=== PATIENT | female | born 1930 | race Caucasian/White ===

== ENCOUNTER 2017-03-06 19:45 | Inpatient (IN) | payer MEDICARE ==
[2017-03-06] MEDS ORDERED: SODIUM CHLORIDE 0.9% 1,000 ML IV STA (20:11)
[2017-03-06 20:37] LABS: Basophils % (A) 0 %; CH 28.7; Eosinophils # (A) 0.1 k/uL (0-0.7); Eosinophils % (A) 1 %; HCT 42.7 % (34.0-46.0); HDW 2.28; HGB 14.4 gm/dL (11.4-16.0); Luc # (Auto) 0.15; Luc % (Auto) 2; Lymphocytes # (A) 1.5 k/uL (1.0-4.8); Lymphocytes % (A) 18 %; MCH 28.7 pg (25.0-35.0); MCHC 33.7 g/dL (31.0-37.0); Mean Platelet Volume 7.7; Monocytes # (A) 0.6 k/uL (0-1.0); Monocytes % (A) 7 %; Neutrophils # (A) 6.2 k/uL (1.3-7.7); Neutrophils % (A) 72 %; RBC 5.03 m/uL (3.80-5.40); RDW 13.4 % (11.5-15.5); WBC 8.6 k/uL (3.8-10.6); WBC (Perox) 8.51
[2017-03-06 20:48] LABS: Partial Thromboplastin Time 25.1 sec (22.0-30.0); Prothrombin Time 10.6 sec (9.0-12.0)
[2017-03-06 20:51] LABS: Creatine Kinase 81 U/L (30-135)
[2017-03-06 20:54] LABS: Calcium 10.1 mg/dL (8.4-10.2); Total Bilirubin 0.5 mg/dL (0.2-1.3); Total Protein 7.2 g/dL (6.3-8.2)
--- NOTE | 2017-03-06 20:54 | CT ---
EXAMINATION TYPE: CT brain wo con DATE OF EXAM: 03/06/2017 8:43 PM COMPARISON: 08/14/2011 INDICATION: speech disturbance and confusion DLP: 978.2 mGycm, Automated exposure control for dose reduction was used. CONTRAST: None CT of the brain is performed utilizing 3 mm thick sections through the posterior fossa and 3 mm thick sections through the remaining calvarium. Study is performed within 24 hours of arrival to the hosp ital. No abnormal hyperdensity is present to suggest an acute intracranial hemorrhage. No mass lesion is evident. No acute infarcts are evident. There is periventricular white matter hypodensity, likely on the basis of chronic white matter ischemic changes. Ventricles and sulci are prominent for the patient age. Paranasal sinuses and mastoid air cells within the [id number] are clear. IMPRESSIONS: 1. Atrophy with periventricular white matter ischemic changes, slightly progressive from 2010.
[2017-03-06 21:03] LABS: Creatine Kinase MB 1.3 ng/mL (0.0-2.4); Troponin I <0.012 ng/mL (0.000-0.034)
--- NOTE | 2017-03-06 21:06 | XR ---
EXAMINATION TYPE: XR chest 2V DATE OF EXAM: 03/06/2017 8:40 PM COMPARISON: NONE INDICATION: Right side weakness TECHNIQUE: 2 view chest FINDINGS: The heart size is normal. The pulmonary vasculature is normal. The lungs are clear. Electronic device overlies left chest. Sternotomy wires are in the midline. IMPRESSION: 1. No acute pulmonary process.
[2017-03-06] MEDS ORDERED: ASPIRIN 325 MG TAB PO STA (21:24)
--- NOTE | 2017-03-06 21:45 | ED ---
Neuro HPI - General Chief Complaint: Neuro Symptoms/Deficit Stated Complaint: CVA symptoms Time Seen by Provider: 03/06/17 20:04 Source: patient Mode of arrival: wheelchair Limitations: no limitations - History of Present Illness Is the patient presenting with stroke symptoms?: Yes Last Known Well Date: 03/05/17 Initial Comments: Is an 86-year-old female with a history of hypertension presents him in [facility] for slurred speech and right arm incoordination. She states the symptoms started sometime yesterday. Her family urged her to come emergency department but she stated she did not want to come in. She decided to come in today when the symptoms did not resolve. She states that she's been having occult he was slurred speech however does not think that she's having trouble getting her words out. She admits to some numbness on the right side of her face as well as some incoordination of her right arm when she tried to eat dinner area she states that she's been able to walk okay. She does not have a history of stroke. She does have a history of CAD. She denies any headache, nausea, or vomiting. No chest pain or shortness of breath. She denies any other complaints. - Related Data Home Medications: Home Medications Medication Instructions Recorded Confirmed Aspirin EC [Ecotrin Low Dose] 81 mg PO DAILY 03/06/17 03/06/17 Atenolol [Tenormin] 25 mg PO DAILY 03/06/17 03/06/17 Cyanocobalamin [Vitamin B-12] 500 mcg PO DAILY 03/06/17 03/06/17 Docusate [Colace] 100 mg PO DAILY 03/06/17 03/06/17 Donepezil [Aricept] 10 mg PO HS 03/06/17 03/06/17 Escitalopram [Lexapro] 20 mg PO DAILY 03/06/17 03/06/17 Furosemide [Lasix] 20 mg PO DAILY 03/06/17 03/06/17 Losartan Potassium [Cozaar] 100 mg PO DAILY 03/06/17 03/06/17 Multivitamins, Thera [Multivitamin 1 tab PO DAILY 03/06/17 03/06/17 (formulary)] sitaGLIPtin [Januvia] 100 mg PO DAILY 04/26/17 04/26/17 Allergies/Adverse Reactions: Allergies Allergy/AdvReac Type Severity Reaction Status Date / Time Penicillins Allergy Rash/Hives Verified 03/06/17 20:55 Review of Systems ROS Statement: Those systems with pertinent positive or pertinent negative responses have been documented in the HPI. ROS Other: All systems not noted in ROS Statement are negative. General Exam - General Exam Comments Initial Comments: Constitutional: Awake alert Appears comfortable Head: Normocephalic atraumatic Eyes: no conjunctival injection No scleral icterus EOMI Neck: No JVD Supple Heart: Regular rate rhythm normal S1-S2 no murmurs Lungs: Clear to auscultation bilaterally No wheezing No rales Abdomen: Soft nondistended nontender Extremities: Non edematous DP pulses intact Radial pulses intact Neuro: A&Ox3 the patient does have some slurring of her speech and right-sided facial droop. She also has some ataxia in the right upper extremity however the right lower Chevys normal. She does have some weakness in the right lower extremity in the extremity drifts to the table when she tries to hold it up. Her right upper extremity and left upper extremities have normal strength. The rest of her cranial nerves are intact. Vision is intact. NIH stroke scale of 4. Psych: Appropriate mood and affect Limitations: no limitations Stroke MDM - Lab Data Result diagrams: 03/06/17 20:16 03/06/17 20:16 Lab Results 03/06/17 03/06/17 03/06/17 Range/Units 20:16 20:16 20:16 WBC 8.6 (3.8-10.6) k/uL RBC 5.03 (3.80-5.40) m/uL Hgb 14.4 (11.4-16.0) gm/dL Hct 42.7 (34.0-46.0) % MCV 85.0 (80.0-100.0) fL MCH 28.7 (25.0-35.0) pg MCHC 33.7 (31.0-37.0) g/dL RDW 13.4 (11.5-15.5) % Plt Count 230 (150-450) k/uL Neutrophils % 72 % Lymphocytes % 18 % Monocytes % 7 % Eosinophils % 1 % Basophils % 0 % Neutrophils # 6.2 (1.3-7.7) k/uL Lymphocytes # 1.5 (1.0-4.8) k/uL Monocytes # 0.6 (0-1.0) k/uL Eosinophils # 0.1 (0-0.7) k/uL Basophils # 0.0 (0-0.2) k/uL PT (9.0-12.0) sec INR (<1.1) APTT (22.0-30.0) sec Sodium 138 (137-145) mmol/L Potassium 5.0 (3.5-5.1) mmol/L Chloride 99 (98-107) mmol/L Carbon Dioxide 28 (22-30) mmol/L Anion Gap 11 mmol/L BUN 39 H (7-17) mg/dL Creatinine 1.40 H (0.52-1.04) mg/dL Est GFR (MDRD) Af Amer 43 (>60 ml/min/1.73 sqM) Est GFR (MDRD) Non-Af 36 (>60 ml/min/1.73 sqM) Glucose 143 H (74-99) mg/dL Calcium 10.1 (8.4-10.2) mg/dL Total Bilirubin 0.5 (0.2-1.3) mg/dL AST 26 (14-36) U/L ALT 24 (9-52) U/L Alkaline Phosphatase 63 (38-126) U/L Total Creatine Kinase 81 (30-135) U/L CK-MB (CK-2) 1.3 (0.0-2.4) ng/mL CK-MB (CK-2) Rel Index 1.6 Troponin I <0.012 (0.000-0.034) ng/mL Total Protein 7.2 (6.3-8.2) g/dL Albumin 4.2 (3.5-5.0) g/dL 03/06/17 Range/Units 20:16 WBC (3.8-10.6) k/uL RBC (3.80-5.40) m/uL Hgb (11.4-16.0) gm/dL Hct (34.0-46.0) % MCV (80.0-100.0) fL MCH (25.0-35.0) pg MCHC (31.0-37.0) g/dL RDW (11.5-15.5) % Plt Count (150-450) k/uL Neutrophils % % Lymphocytes % % Monocytes % % Eosinophils % % Basophils % % Neutrophils # (1.3-7.7) k/uL Lymphocytes # (1.0-4.8) k/uL Monocytes # (0-1.0) k/uL Eosinophils # (0-0.7) k/uL Basophils # (0-0.2) k/uL PT 10.6 (9.0-12.0) sec INR 1.0 (<1.1) APTT 25.1 (22.0-30.0) sec Sodium (137-145) mmol/L Potassium (3.5-5.1) mmol/L Chloride (98-107) mmol/L Carbon Dioxide (22-30) mmol/L Anion Gap mmol/L BUN (7-17) mg/dL Creatinine (0.52-1.04) mg/dL Est GFR (MDRD) Af Amer (>60 ml/min/1.73 sqM) Est GFR (MDRD) Non-Af (>60 ml/min/1.73 sqM) Glucose (74-99) mg/dL Calcium (8.4-10.2) mg/dL Total Bilirubin (0.2-1.3) mg/dL AST (14-36) U/L ALT (9-52) U/L Alkaline Phosphatase (38-126) U/L Total Creatine Kinase (30-135) U/L CK-MB (CK-2) (0.0-2.4) ng/mL CK-MB (CK-2) Rel Index Troponin I (0.000-0.034) ng/mL Total Protein (6.3-8.2) g/dL Albumin (3.5-5.0) g/dL - NIH Stroke Scale 1a. Level of Consciousness: (0) alert 1b. LOC Questions: (0) answers correctly 1c. LOC Commands: (0) performs tasks correctly 2. Best Gaze: (0) normal 3. Visual: (0) no visual loss 4. Facial Palsy: (1) minor paralysis 5a. Motor Arm Left: (0) no drift 5b. Motor Arm Right: (0) no drift 6a. Motor Leg Left: (0) no drift 6b. Motor Leg Right: (1) drift 7. Limb Ataxia: (1) present 1 limb 8. Sensory: (0) normal 9. Best Language: (0) no aphasia 10. Dysarthria: (1) mild/moderate dysarthria 11. Extinction/Inattention: (0) no abnormality NIH Score total: 4 - Thrombolytic Inclusion/Exclusion Thrombolytic Exclusion Criteria: Symptom Onset > 3 Hours - Medical Decision Making This is an 86-year-old female presents for slurred speech. On physical exam she does appear to have had an ischemic stroke. CT of the head was read as negative for acute stroke however due to the patient's physical exam I do feel that she had a stroke. The patient is not TPA Because she is outside the window as the symptoms started yesterday. NIH stroke scale 4 at baseline. The rest her labwork is unremarkable except for some achy eye. She started on fluids and given aspirin and like to keep her in the hospital for further testing. I did write for a ride Doppler of her carotids and also had 2-D echo. She is not able to get an MRI because she has a pacemaker. Dr. Bolaños accepts the admission. Past Medical History Past Medical History: Coronary Artery Disease (CAD), Diabetes Mellitus, Hyperlipidemia, Hypertension, Myocardial Infarction ([place]) History of Any Multi-Drug Resistant Organisms: None Reported Past Surgical History: Orthopedic Surgery, Pacemaker Past Psychological History: Depression Smoking Status: Never smoker Past Alcohol Use History: None Reported Past Drug Use History: None Reported Course Vital Signs 03/06/17 03/06/17 19:47 20:21 Temperature 99.3 F Pulse Rate 61 Respiratory 18 Rate Blood Pressure 203/82 161/65 O2 Sat by Pulse 94 L Oximetry Disposition Clinical Impression: Cerebrovascular accident Disposition: ADMITTED IP TO THIS HOSP Condition: Stable
[2017-03-07 00:49] VITALS: BMI 33.3
[2017-03-07 07:03] LABS: Glucose,Whole Blood 104 mg/dL (75-99)
[2017-03-07] MEDS: ATENOLOL 25 MG TAB PO SCH (08:33)
[2017-03-07] MEDS: CYANOCOBALAMIN 500 MCG TAB PO SCH (08:33)
[2017-03-07] MEDS: ESCITALOPRAM 20 MG TAB PO SCH (08:33)
[2017-03-07] MEDS: DOCUSATE 100 MG CAP PO SCH (08:33)
[2017-03-07] MEDS: LINAGLIPTIN 5 MG TABLET PO SCH (08:34)
[2017-03-07] MEDS: LOSARTAN 50 MG TAB PO SCH (08:34)
[2017-03-07] MEDS: FUROSEMIDE 20 MG TAB PO SCH (08:34)
[2017-03-07] MEDS: MULTIVITAMINS, THERA 1 EACH TAB PO SCH (08:34)
--- NOTE | 2017-03-07 10:28 | ECHOF ---
Referral Reason:Thrombus MEASUREMENTS -------- HEIGHT: 157.5 cm WEIGHT: 82.6 kg BP: 162/74 RVIDd: 3.0 cm (< 3.3) IVSd: 1.4 cm (0.6 - 1.1) LVIDd: 5.3 cm (3.9 - 5.3) LVPWd: 1.2 cm (0.6 - 1.1) IVSs: 1.8 cm LVIDs: 3.8 cm LVPWs: 1.6 cm LAESV Index (A-L): 36.89 ml/m Ao Diam: 3.0 cm (2.0 - 3.7) AV Cusp: 1.3 cm (1.5 - 2.6) LA Diam: 3.0 cm (2.7 - 3.8) MV EXCURSION: 15.618 mm (> 18.000) MV EF SLOPE: 45 mm/s (70 - 150) MV E Jayesh: 0.64 m/s MV DecT: 202 ms MV A Jayesh: 0.97 m/s MV E/A Ratio: 0.67 AV maxP.46 mmHg AV meanP.55 mmHg RAP: 5.00 mmHg RVSP: 36.12 mmHg FINDINGS -------- Paced rhythm. This was a technically adequate study. There is moderate concentric left ventricular hypertrophy. There is moderate global hypokinesis of LV . Overall left ventricular systolic function is moderate-severely impaired with, an EF between 30 - 35 %. The right ventricle is normal in size and function. LA is moderately dilated 34-39 ml/m2 The right atrium is mildly enlarged. There is mild to moderate aortic valve sclerosis. Can't exclude Bicuspid valve vs fused cusp. Moderate mitral annular calcification present. Nksy-bp-[id number] mitral regurgitation is present. Mild tricuspid regurgitation present. There is mild pulmonary hypertension. The right ventricular systolic pressure, as measured by Doppler, is 36.12mmHg. The pulmonic valve was not well visualized. The aortic root size is normal. There is no pericardial effusion. CONCLUSIONS -------- 1. Paced rhythm. 2. There is mild pulmonary hypertension. 3. The right ventricular systolic pressure, as measured by Doppler, is 36.12mmHg. 4. The pulmonic valve was not well visualized. 5. The aortic root size is normal. 6. There is no pericardial effusion. 7. There is moderate concentric left ventricular hypertrophy. 8. LA is moderately dilated 34-39 ml/m2 9. The right atrium is mildly enlarged. 10. There is mild to moderate aortic valve sclerosis. 11. Can't exclude Bicuspid valve vs fused cusp. 12. Moderate mitral annular calcification present. 13. Acpu-xg-[id number] mitral regurgitation is present. 14. Mild tricuspid regurgitation present. INFORMATION DIRECTOR: Melissa Hall RDCS
[2017-03-07 11:08] LABS: Glucose,Whole Blood 170 mg/dL (75-99)
--- NOTE | 2017-03-07 11:48 | US ---
EXAMINATION TYPE: US carotid duplex BILAT DATE OF EXAM: 03/07/2017 10:12 AM COMPARISON: NONE CLINICAL HISTORY: Stenosis. EXAM MEASUREMENTS: RIGHT: Peak Systolic Velocity (PSV) cm/sec ----- Right CCA: 53.9 ----- Right ICA: 86.7 ----- Right ECA: 70.2 ICA/CCA ratio: 1.6 RIGHT: End Diastole cm/sec ----- Right CCA: 6.1 ----- Right ICA: 19.7 ----- Right ECA: 0 LEFT: Peak Systolic Velocity (PSV) cm/sec ----- Left CCA: 66.8 ----- Left ICA: 8..9 ----- Left ECA: 85.8 ICA/CCA ratio: 1.9 LEFT: End Diastole cm/sec ----- Left CCA: 11.9 ----- Left ICA: 20.4 ----- Left ECA: 0 VERTEBRALS (direction of flow): Right Vertebral: Antegrade Left Vertebral: Antegrade mild atherosclerotic change at right bulb; Left bulb also shows change extending into proximal ICA. Arrythmia no hemodynamic stenosis IMPRESSION: 1. Atherosclerotic plaque bilaterally with no significant hemodynamic stenosis.
[2017-03-07 16:08] LABS: Glucose,Whole Blood 129 mg/dL (75-99)
--- NOTE | 2017-03-07 21:01 | P.CNNES ---
History of Present Illness Consult date: 03/07/17 History of Present Illness: Patient is an 86-year-old white female who reports that she woke up this morning with slurred speech. She also noticed right facial droop and right- sided weakness. She experienced some right-sided numbness which improved over 24 hours. She continues to experience right-sided weakness in the arm and leg. She denies any double vision or headache. She denied any history of such events in the past. He has a history of of [place] and high blood pressure. Her other risk factor includes diabetes she has been taking baby aspirin. He had a CT of the brain in the emergency room which was unremarkable. He had an ultrasound done which did not reveal a significant stenosis. Review of Systems Constitutional: Denies chills, Denies fever Eyes: denies blurred vision, denies pain Ears, nose, mouth and throat: Denies headache, Denies sore throat Cardiovascular: Denies chest pain, Denies shortness of breath Respiratory: Denies cough Gastrointestinal: Denies abdominal pain, Denies diarrhea, Denies nausea, Denies vomiting Genitourinary: Denies dysuria, Denies hematuria Musculoskeletal: Denies myalgias Integumentary: Denies pruritus, Denies rash Neurological: Denies numbness, Denies weakness Psychiatric: Denies anxiety, Denies depression Endocrine: Denies fatigue, Denies weight change Past Medical History Past Medical History: Coronary Artery Disease (CAD), Diabetes Mellitus, Hyperlipidemia, Hypertension, Myocardial Infarction ([place]) Additional Past Medical History / Comment(s): patient states she had a heart attack 30-40 years ago. Last Myocardial Infarction Date:: 1984 History of Any Multi-Drug Resistant Organisms: None Reported Past Surgical History: Orthopedic Surgery, Pacemaker Past Anesthesia/Blood Transfusion Reactions: No Reported Reaction Type of Cardiac Device: Permanent Pacemaker Device Placement Date:: 2001 Past Psychological History: Depression Smoking Status: Never smoker Past Alcohol Use History: None Reported Past Drug Use History: None Reported - Past Family History Father Family Medical History: Coronary Artery Disease (CAD) Medications and Allergies Home Medications Medication Instructions Recorded Confirmed Type Aspirin EC [Ecotrin Low Dose] 81 mg PO DAILY 03/06/17 03/06/17 History Atenolol [Tenormin] 25 mg PO DAILY 03/06/17 03/06/17 History Cyanocobalamin [Vitamin B-12] 500 mcg PO DAILY 03/06/17 03/06/17 History Docusate [Colace] 100 mg PO DAILY 03/06/17 03/06/17 History Donepezil [Aricept] 10 mg PO HS 03/06/17 03/06/17 History Escitalopram [Lexapro] 20 mg PO DAILY 03/06/17 03/06/17 History Furosemide [Lasix] 20 mg PO DAILY 03/06/17 03/06/17 History Losartan Potassium [Cozaar] 100 mg PO DAILY 03/06/17 03/06/17 History Multivitamins, Thera [Multivitamin 1 tab PO DAILY 03/06/17 03/06/17 History (formulary)] sitaGLIPtin [Januvia] 100 mg PO DAILY 03/06/17 03/06/17 History Allergies Allergy/AdvReac Type Severity Reaction Status Date / Time Penicillins Allergy Rash/Hives Verified 03/06/17 20:55 Physical Examination - Vital Signs Vital Signs: Vital Signs Temp Pulse Pulse Resp BP BP Pulse Ox 03/07/17 16:00 63 16 190/110 97 03/07/17 12:00 76 16 157/74 98 03/07/17 08:00 97.2 F L 63 16 180/101 94 L 03/07/17 04:00 97.1 F L 60 18 162/74 96 03/06/17 23:55 96.9 F L 60 18 139/92 95 03/06/17 23:32 69 18 183/82 96 03/06/17 22:06 64 18 185/85 98 Intake and Output 03/07/17 03/07/17 03/07/17 06:59 14:59 22:59 Intake Total 480 480 Output Total 200 300 Balance 280 180 Intake: Oral 480 480 Output: Urine 200 300 Other: Voiding Method Toilet Toilet Toilet # Voids 1 1 # Bowel Movements 0 0 Weight 82.7 kg - Constitutional General appearance: average body habitus - EENT EENT: PERRL, vision intact - Respiratory Respiratory: lungs clear - Cardiovascular Cardiovascular: regular rate - Integumentary Integumentary: normal - Neurologic Mental status she was awake alert and oriented. There was mild dysarthria. Cranial nerve examination: PERRL, EOMI, VFF, other (She had a right upper motor neuron facial weakness) Speech examination: motor aphasia Detailed motor examination: other (She had right-sided hemiparesis 4/5) - Psychiatric Psychiatric: mood/affect appropriate, cooperative Results - Laboratory Findings CBC and BMP: 03/06/17 20:16 03/06/17 20:16 Abnormal Lab Findings: Abnormal Labs 03/07/17 03/07/17 03/07/17 07:02 11:06 16:06 POC Glucose (mg/dL) 104 H 170 H 129 H Assessment and Plan (1) Cerebrovascular accident Status: Acute Code(s): I63.9 - CEREBRAL INFARCTION, UNSPECIFIED Plan: The patient has most likely had a left subcortical infarct. Recommend further evaluation with echocardiogram. Recommend Plavix 75 mg a day for stroke prophylaxis. Recommend PT OT and speech therapy patient's risk factors include diabetes heart disease and hypertension
[2017-03-07] MEDS: ATORVASTATIN 80 MG TAB PO SCH (21:06)
[2017-03-07] MEDS: DONEPEZIL 10 MG TAB PO SCH (21:06)
[2017-03-07] MEDS: SODIUM CHLORIDE 0.9% 1,000 ML IV SCH (21:21)
[2017-03-07 22:03] LABS: Glucose,Whole Blood 121 mg/dL (75-99)
[2017-03-08 06:35] LABS: Calcium 9.1 mg/dL (8.4-10.2); Potassium 4.4 mmol/L (3.5-5.1)
[2017-03-08 06:35] LABS: Glucose,Whole Blood 110 mg/dL (75-99)
--- NOTE | 2017-03-08 08:08 | HP ---
DATE OF ADMISSION: 03/06/2017 PRESENTING COMPLAINT: Right-sided weakness. HISTORY OF PRESENTING COMPLAINT: This is a pleasant 86-year-old patient who the day before presented noted weakness on the right side, slurring of speech, brought in. There was no change in her vision. No difficulty in swallowing. There has been no change. Getting worse or improvement since presentation. Patient is not felt to be candidate in the ER with TPA. Patient's chronic stable medical conditions include coronary artery disease, diabetes, hyperlipidemia, hypertension, [place] 30 years ago with a permanent pacemaker. REVIEW OF SYSTEMS: CONSTITUTIONAL: None. HEENT: None. RESPIRATORY: None. CARDIOVASCULAR: None. GASTROINTESTINAL: None. GENITOURINARY: None. MUSCULOSKELETAL: None. DERMATOLOGICAL: None. HEMATOLOGICAL: None. LYMPHATIC: None. PSYCHIATRY: None. NEUROLOGICAL: As above. Past medical history of coronary artery disease, diabetes, hyperlipidemia, hypertension, [place] 30 years ago, permanent pacemaker. PAST SURGICAL HISTORY: Orthopedic surgery, pacemaker. SOCIAL HISTORY: No smoking. No alcohol. Daughter lives next door. Family history of coronary artery disease. HOME MEDICATIONS: 1. Januvia 100 mg p.o. daily. 2. Multivitamin 1 tablet p.o. daily. 3. Cozaar 100 mg p.o. daily. 4. Lasix 20 mg p.o. daily. 5. Lexapro 20 mg p.o. daily. 6. Aricept 10 mg q.h.s. 7. Colace 100 mg p.o. daily. 8. Vitamin B12 500 mcg p.o. daily. 9. Tenormin 25 mg p.o. daily. 10. Aspirin 81 mg p.o. daily. ALLERGIES: PENICILLIN. PHYSICAL EXAMINATION: Vital signs on presentation: Temperature 99.3, pulse 86, respiratory rate 18, blood pressure up to 203/82, repeat down to 185/85, pulse ox 94% on room air. GENERAL APPEARANCE: Well built, BMI of 33.3. Lying in bed, not in distress. EYES: Pupils equal. Conjunctivae normal. HEENT: External appearance of nose and ears normal. Oral cavity normal. NECK: JVD not raised. Mass not palpable. RESPIRATORY: Effort normal. Lungs are clear. CARDIOVASCULAR: First and second sounds normal. No edema. ABDOMEN: Soft, nontender. Liver and spleen not palpable. LYMPHATIC: No lymph node palpable in neck or axillae. PSYCHIATRY: Alert and oriented x3. Mood and affect normal. NEUROLOGICAL: Patient's mouth is pulled to the left side. Speech is slurred. Power in the right arm and leg is 4/5. Sensation grossly preserved. Reflexes are equal. INVESTIGATIONS: White count 8.6, hemoglobin 14.4. Potassium 5.0. BUN 39, creatinine 1.40. Accu-Cheks are noted. CT scan of the brain shows atrophy with periventricular white matter ischemic changes. The patient's 2-D echocardiogram showed moderate concentric left ventricular hypertrophy, some mitral annular calcification. Carotid Doppler did not show any critical hemodynamic stenosis. ASSESSMENT: 1. This is a patient who presents with right arm right leg weakness, dysarthria. This appears to be in the area of left middle cerebral artery area likely ischemic in nature in a right-handed patient. This is an acute stroke. 2. Coronary artery disease with myocardial infarction over 30 years ago. 3. Diabetes mellitus, type 2, on oral hypoglycemic. 4. Hypertensive urgency, present on admission. 5. Permanent pacemaker. 6. Obesity; body mass index of 33.3. 7. Abnormal renal function. Could be possibly chronic. Need to rule out an acute component. PLAN: Patient was started on aspirin, Lipitor. Will check a lipid profile. PT, OT is consulted including Neurology consultation. Care was discussed with the patient. Patient is able to swallow her food. Will do a renal ultrasound and also do UA to rule out any chronic kidney disease element. Care was discussed with the patient in detail.
[2017-03-08] MEDS ORDERED: ASPIRIN 325 MG TAB PO SCH (09:00)
[2017-03-08] MEDS: CLOPIDOGREL 75 MG TAB PO SCH (09:22)
[2017-03-08] MEDS: ASPIRIN 81 MG CHEW PO SCH (09:22)
[2017-03-08] MEDS: MULTIVITAMINS, THERA 1 EACH TAB PO SCH (09:22)
[2017-03-08] MEDS: ATENOLOL 25 MG TAB PO SCH (09:22)
[2017-03-08] MEDS: ESCITALOPRAM 20 MG TAB PO SCH (09:22)
[2017-03-08] MEDS: LOSARTAN 50 MG TAB PO SCH (09:22)
[2017-03-08] MEDS: DOCUSATE 100 MG CAP PO SCH (09:22)
[2017-03-08] MEDS: FUROSEMIDE 20 MG TAB PO SCH (09:23)
[2017-03-08] MEDS: CYANOCOBALAMIN 500 MCG TAB PO SCH (09:23)
[2017-03-08] MEDS: LINAGLIPTIN 5 MG TABLET PO SCH (09:23)
--- NOTE | 2017-03-08 10:02 | US ---
EXAMINATION TYPE: US kidneys/renal and bladder DATE OF EXAM: 03/08/2017 7:58 AM COMPARISON: NONE CLINICAL HISTORY: elevated creatinie. Elevated creatinine, obese patient EXAM MEASUREMENTS: Right Kidney: 10.5 x 4.2 x 4.6 cm Left Kidney: 10.4 x 5.0 x 5.1 cm Right Kidney: 1.6cm hypoechoic area inferior pole, limited by rib shadowing Left Kidney: no hydronephrosis or masses seen at this time, limited by rib shadowing Bladder: not fully distended, limited visualization IMPRESSION: 1. No hydronephrosis or nephrolithiasis. 2. 1.6 cm hypoechoic nodule inferior pole right kidney does not meet the criteria of simple cyst but this likely is technical. Correlate clinically and with additional imaging is warranted.
[2017-03-08 11:49] LABS: Hemoglobin A1C 6.6 % (4.2-6.1)
[2017-03-08 12:11] LABS: Glucose,Whole Blood 134 mg/dL (75-99)
[2017-03-08] MEDS: SODIUM CHLORIDE 0.9% 1,000 ML IV SCH ×2 (16:50→21:15)
[2017-03-08 16:59] LABS: Glucose,Whole Blood 107 mg/dL (75-99)
--- NOTE | 2017-03-08 19:35 | PN ---
DATE OF SERVICE: 03/08/2017 PRESENTING COMPLAINT: Right-sided weakness. INTERVAL HISTORY: This is a pleasant 86-year-old patient who presented with right-sided weakness, slurred speech. Today the patient continues to have right-sided weakness, is sitting up on the side of the bed getting ready to walk with assistance into the bathroom to get cleaned up. Patient in good spirits. No acute distress noted. Review of systems done for constitutional, cardiovascular, GI, pulmonary, with relevant findings as above. CURRENT MEDICATIONS: 1. Januvia. 2. Multivitamin. 3. Cozaar. 4. Lasix. 5. Lexapro. 6. Aricept. 7. Colace. 8. Vitamin B12. 9. Tenormin. 10. Aspirin. PHYSICAL EXAMINATION: VITAL SIGNS: Temperature 97, pulse 60, respiratory rate 16, blood pressure 104/75, oxygen saturation 97% on room air. GENERAL APPEARANCE: Patient sitting on side of the bed, not in any distress. Getting ready to take a shower. Smiling. EYES: Pupils equal. Conjunctivae normal. NECK: JVD not raised. Mass not palpable. RESPIRATORY: Effort normal. Lungs are clear. CARDIOVASCULAR: First and second sounds are normal. No edema. ABDOMEN: Soft, nontender. Liver and spleen not palpable. PSYCHIATRY: Alert and oriented x3. Mood and affect are normal. NEUROLOGICAL: Patient's mouth is pulled down, pulled to the left side. Speech is slurred. Power in the right arm and leg is 4/5. Sensation grossly preserved. Reflexes are equal. INVESTIGATIONS: BUN 40, creatinine 1.3, down from 1.4 on 03/06. Blood glucose monitoring continues. Triglycerides 248, cholesterol 200, LDL 124, HDL 26. Renal ultrasound shows no hydronephrosis or nephrolithiasis; 1.6 cm hypoechoic nodule, inferior pole, right kidney; does not meet criteria of simple cyst, but this is likely technical. Correlate clinically with additional imaging as warranted. ASSESSMENT: 1. Patient who presents with right-sided weakness, right arm weakness, right leg weakness, dysarthria. Appears to be located in left middle cerebral artery area, likely ischemic in nature, in a right-handed patient. This is an acute stroke. 2. Coronary artery disease with myocardial infarction over 30 years ago. 3. Diabetes mellitus, type 2, on oral hypoglycemics. 4. Hypertensive urgency, present on admission. 5. Permanent pacemaker. 6. Obesity; body mass index of 33.3. 7. Abnormal renal function; could be possibly chronic. Need to rule out an acute component. PLAN: Continue aspirin and Lipitor. Lipid panel as above. PT/OT consulted. Neurology continues to follow in consultation. Discharge planning to include patient being sent to rehabilitation for strengthening, gait training, post-stroke rehabilitation. Care was discussed in detail with the patient. Patient was seen and examined by me, nurse practitioner, and attending, Dr. Bolaños. The relevant points of the history, physical, diagnoses and plan were discussed and are as dictated above.
[2017-03-08 20:44] LABS: Glucose,Whole Blood 138 mg/dL (75-99)
[2017-03-08] MEDS: ATORVASTATIN 80 MG TAB PO SCH (21:10)
[2017-03-08] MEDS: DONEPEZIL 10 MG TAB PO SCH (21:10)
[2017-03-09 06:21] LABS: Glucose,Whole Blood 102 mg/dL (75-99)
[2017-03-09 06:55] LABS: CH 28.3; CHCM 33.6; HCT 37.6 % (34.0-46.0); HDW 2.32; HGB 12.8 gm/dL (11.4-16.0); MCH 28.6 pg (25.0-35.0); MCV 84.4 fL (80.0-100.0); Mean Platelet Volume 7.8; RBC 4.45 m/uL (3.80-5.40); RDW 13.3 % (11.5-15.5); WBC 9.2 k/uL (3.8-10.6)
[2017-03-09 07:01] LABS: Calcium 9.2 mg/dL (8.4-10.2); Potassium 4.3 mmol/L (3.5-5.1)
[2017-03-09] MEDS: ATENOLOL 25 MG TAB PO SCH (08:45)
[2017-03-09] MEDS: LOSARTAN 50 MG TAB PO SCH (08:45)
[2017-03-09] MEDS: CYANOCOBALAMIN 500 MCG TAB PO SCH (08:45)
[2017-03-09] MEDS: MULTIVITAMINS, THERA 1 EACH TAB PO SCH (08:45)
[2017-03-09] MEDS: FUROSEMIDE 20 MG TAB PO SCH (08:45)
[2017-03-09] MEDS: ASPIRIN 81 MG CHEW PO SCH (08:45)
[2017-03-09] MEDS: ESCITALOPRAM 20 MG TAB PO SCH (08:45)
[2017-03-09] MEDS: CLOPIDOGREL 75 MG TAB PO SCH (08:46)
[2017-03-09] MEDS: LINAGLIPTIN 5 MG TABLET PO SCH (08:46)
[2017-03-09] MEDS: DOCUSATE 100 MG CAP PO SCH (08:46)
[2017-03-09 11:50] LABS: Glucose,Whole Blood 154 mg/dL (75-99)
[2017-03-09] MEDS: SODIUM CHLORIDE 0.9% 1,000 ML IV SCH (15:54)
[2017-03-09] MEDS ORDERED: RX INFO: IV CONTRAST WAS GIVEN 1 EACH MISC MISCELLANE PRN (16:34)
[2017-03-09 17:20] LABS: Glucose,Whole Blood 109 mg/dL (75-99)
--- NOTE | 2017-03-09 18:53 | PN ---
SUBJECTIVE DATA/INTERVAL HISTORY: This is an 86-year-old female who was admitted to the hospital with slurred speech, right-sided weakness with a diagnosis of acute CVA of the left MCA territory. Patient was admitted to the hospital. Her risk factors were delineated. Echocardiogram was done showing an EF of 30% to 35%. Patient currently is dual paced. Patient does have a moderately dilated left atrium. Today patient states that her weakness is about the same. Denies having any headaches, change in vision, nausea, vomiting, diarrhea or urinary urgency or frequency PHYSICAL EXAMINATION: VITAL SIGNS: Temperature 96.8. Heart rate is 60. Blood pressure is 205/91, which is isolated. GENERAL APPEARANCE: Alert and oriented x3. Does appear to have some dysarthria. Neck is supple. No JVD. Extraocular movements intact. Pupils are equal, round and react to light and accommodation. LUNGS: Good air movement. Clear to auscultation. HEART: Appears regular. No significant abnormalities with murmurs noted. ABDOMEN: Soft, nontender. No organomegaly. NEUROLOGIC EXAM: Strength is 3 out of 5 on the right upper extremity, 3 out of 5 in the right lower extremity. Drift is noted on the right upper extremity within 5 seconds. Left upper and lower extremity strength is 5 out of 5. Deep tendon reflexes positive Babinski on the right side. LABORATORY DATA: Hemoglobin 12.8, hematocrit 37.6, platelets 195. Sodium 139, potassium 4.3, chloride 102, bicarb 30. BUN 36, creatinine of 1.09. ASSESSMENT AND PLAN: 1. Acute left middle cerebral artery territory stroke in a right-dominant person with right-sided weakness. 2. Acute kidney injury, likely secondary to prerenal azotemia, which is improved. 3. Hypertension, which is slightly elevated; however, this is sequelae of stroke. Continue ongoing care. Will discontinue IV fluids today. 4. History of coronary artery disease. 5. Compensated systolic heart failure. 6. Dyslipidemia. PLAN: Patient was started on aspirin and Plavix. There is no indication ( ) large intracranial clot; hence will obtain a CT angiogram of the head. If there is a large clot in the left MCA territory region which would explain the current stroke, will continue Plavix; if not, I would discontinue the Plavix at that time. Do not treat the hypertension unless the patient's blood pressure systolic is greater than 220. Monitor renal function in the a.m. Continue neuro checks. Patient will likely need placement to ( ). Will add DVT prophylaxis to the current management as well.
[2017-03-09] MEDS: DONEPEZIL 10 MG TAB PO SCH (20:22)
[2017-03-09] MEDS: ATORVASTATIN 80 MG TAB PO SCH (20:22)
[2017-03-09] MEDS: ENOXAPARIN 40 MG/0.4 ML SYRINGE SQ SCH (20:22)
[2017-03-09 21:17] LABS: Glucose,Whole Blood 155 mg/dL (75-99)
--- NOTE | 2017-03-09 21:27 | CT ---
EXAMINATION TYPE: CT angio head DATE OF EXAM: 03/09/2017 9:09 PM COMPARISON: CT brain from 3 days ago HISTORY: Right sided weakness and slurred speech. CT DLP: 1397.20 mGycm Automated exposure control for dose reduction was used. TECHNIQUE: Performed without and with IV Contrast, patient injected with 80 mL of Visipaque 320. 3D reconstructed images are created on an independent workstation and reviewed. Miffed images are als o reviewed. FINDINGS: There is codominant vertebral basilar system. There is no significant focal stenosis in the posterior circulation. There are hypoplastic posterior communicating arteries seen bilaterally. No aneurysmal change is seen. Images of the anterior circulation show moderate to severe calcified plaque distal internal carotid a rteries bilaterally. No significant stenosis is clearly seen. No aneurysmal change is identified. Pat ent anterior communicating artery is not definitively seen. There is diffuse cerebral atrophy and chronic small vessel ischemic change redemonstrated. Hyperostos is frontalis is again seen. IMPRESSION: NO ANEURYSMAL CHANGE OR SIGNIFICANT FOCAL STENOSIS AT LEVEL OF THE [place]UMB[place] OF PALM.
[2017-03-10 06:32] LABS: Glucose,Whole Blood 95 mg/dL (75-99)
[2017-03-10 07:23] LABS: Calcium 9.1 mg/dL (8.4-10.2); Potassium 4.7 mmol/L (3.5-5.1); Total Bilirubin 0.8 mg/dL (0.2-1.3); Total Protein 6.3 g/dL (6.3-8.2)
[2017-03-10 07:48] LABS: Basophils # (A) 0.1 k/uL (0-0.2); Basophils % (A) 1 %; CH 28.6; CHCM 33.8; Eosinophils # (A) 0.2 k/uL (0-0.7); Eosinophils % (A) 2 %; HCT 38.7 % (34.0-46.0); HDW 2.29; HGB 12.8 gm/dL (11.4-16.0); Luc # (Auto) 0.29; Luc % (Auto) 4; Lymphocytes # (A) 1.9 k/uL (1.0-4.8); Lymphocytes % (A) 23 %; MCH 28.1 pg (25.0-35.0); MCV 85.1 fL (80.0-100.0); Mean Platelet Volume 7.6; Monocytes # (A) 0.7 k/uL (0-1.0); Monocytes % (A) 9 %; Neutrophils % (A) 62 %; RBC 4.55 m/uL (3.80-5.40); RDW 13.4 % (11.5-15.5); WBC 8.1 k/uL (3.8-10.6); WBC (Perox) 8.58
[2017-03-10] MEDS: ASPIRIN 81 MG CHEW PO SCH (09:12)
[2017-03-10] MEDS: CLOPIDOGREL 75 MG TAB PO SCH (09:12)
[2017-03-10] MEDS: LINAGLIPTIN 5 MG TABLET PO SCH (09:12)
[2017-03-10] MEDS: ATENOLOL 25 MG TAB PO SCH (09:12)
[2017-03-10] MEDS: ENOXAPARIN 40 MG/0.4 ML SYRINGE SQ SCH (09:13)
[2017-03-10] MEDS: CYANOCOBALAMIN 500 MCG TAB PO SCH (09:13)
[2017-03-10] MEDS: DOCUSATE 100 MG CAP PO SCH (09:13)
[2017-03-10] MEDS: FUROSEMIDE 20 MG TAB PO SCH (09:14)
[2017-03-10] MEDS: LOSARTAN 50 MG TAB PO SCH (09:14)
[2017-03-10] MEDS: ESCITALOPRAM 20 MG TAB PO SCH (09:14)
[2017-03-10] MEDS: MULTIVITAMINS, THERA 1 EACH TAB PO SCH (09:15)
[2017-03-10 11:50] VITALS: RESP 16
[2017-03-10 12:22] LABS: Glucose,Whole Blood 151 mg/dL (75-99)
[2017-03-10] MEDS: DONEPEZIL 10 MG TAB PO SCH (21:07)
[2017-03-10] MEDS: ATORVASTATIN 80 MG TAB PO SCH (21:07)
[2017-03-11] MEDS: LOSARTAN 50 MG TAB PO SCH (08:30)
[2017-03-11] MEDS: ENOXAPARIN 40 MG/0.4 ML SYRINGE SQ SCH (08:30)
[2017-03-11] MEDS: DOCUSATE 100 MG CAP PO SCH (08:31)
[2017-03-11] MEDS: ATENOLOL 25 MG TAB PO SCH (08:32)
[2017-03-11] MEDS: ESCITALOPRAM 20 MG TAB PO SCH (08:32)
[2017-03-11] MEDS: MULTIVITAMINS, THERA 1 EACH TAB PO SCH (08:32)
[2017-03-11] MEDS: LINAGLIPTIN 5 MG TABLET PO SCH (08:32)
[2017-03-11] MEDS: FUROSEMIDE 20 MG TAB PO SCH (08:32)
[2017-03-11] MEDS: ASPIRIN 81 MG CHEW PO SCH (08:32)
[2017-03-11] MEDS: CYANOCOBALAMIN 500 MCG TAB PO SCH (10:46)
[2017-03-11 15:33] VITALS: BP 143/85; PULSE 60; TEMP 96.9
--- NOTE | 2017-03-11 16:10 | P.DS ---
Providers Date of admission: 03/06/17 21:38 Attending physician: Tee Bolaños Consults: 03/07/17 04:35 Consult Physician Routine Consulting Provider: Lillian Rae Consult Reason/Comments: slurred speech, right side weakness Do you want consulting provider notified?: Yes, Notify in am Primary care physician: [facility] Course: 0 female comes in the hospital with slurred speech right-sided weakness. Patient was diagnosed with a acute CVA of the left MCA territory. Patient underwent risk factor assessment. Patient was initially started on aspirin and Plavix however a CT angiogram of the head did not reveal any left MCA region thrombus. Hence the Plavix was discontinued. Patient's residual symptoms appear to be there is some dysarthria fine motor skills on the right upper extremity are limited. Echocardiogram showed EF of 30-35% carotid studies did not reveal any significant amount is EKG was within normal limits no signs of atrial fibrillation was noted on telemetry monitoring On the day of discharge patient was answering questions appropriately family was at bedside states the abnormality that was noted was patient was not able to perform fine motor skills like eating her food with a fork Physical exam Gen. appearance oriented 3 Neck is supple no JVD no carotid bruit Lungs good air movement clear to auscultation heart S1-S2 heard regular rate and rhythm no murmurs appreciated Is soft nontender no organomegaly Neurologic exam dysarthria appreciated rest of the cranial nerves from 2 till 12 appear to be appropriate. Muscle strength is 4 out of 5 in the right upper extremity right lowers 5 out of 5 left upper and left lower 5 out of 5 in strength Fine motor skills are diminished on the right upper x-ray Discharge diagnosis acute CVA of the left MCA territory causing right-sided weakness #2 compensated systolic heart failure #3 acute kidney injury secondary to prerenal improved #4 dyslipidemia #5 history of CAD *Should ECF in a stable condition no medication changes. 4 atorvastatin 80 mg. Patient Condition at Discharge: Stable Plan - Discharge Summary New Discharge Prescriptions: Atorvastatin [Lipitor] 80 mg PO HS #30 tab Discharge Medication List Aspirin EC [Ecotrin Low Dose] 81 mg PO DAILY 03/06/17 [History] Atenolol [Tenormin] 25 mg PO DAILY 03/06/17 [History] Cyanocobalamin [Vitamin B-12] 500 mcg PO DAILY 03/06/17 [History] Docusate [Colace] 100 mg PO DAILY 03/06/17 [History] Donepezil [Aricept] 10 mg PO HS 03/06/17 [History] Escitalopram [Lexapro] 20 mg PO DAILY 03/06/17 [History] Furosemide [Lasix] 20 mg PO DAILY 03/06/17 [History] Losartan Potassium [Cozaar] 100 mg PO DAILY 03/06/17 [History] Multivitamins, Thera [Multivitamin (formulary)] 1 tab PO DAILY 03/06/17 [History ] sitaGLIPtin [Januvia] 100 mg PO DAILY 03/06/17 [History] Atorvastatin [Lipitor] 80 mg PO HS #30 tab 03/11/17 [Rx] Follow up Appointment(s)/Referral(s): Cheko Junior MD [Primary Care Provider] - 1-2 days Iva Rae MD [STAFF PHYSICIAN] - 1 Week Patient Instructions/Handouts: Type 2 Diabetes in Adults (DC) Discharge Disposition: TRANSFER TO SNF/ECF
[2017-03-12] MEDS ORDERED: ENOXAPARIN 30 MG/0.3 ML SYRINGE SQ SCH (09:00)
--- NOTE | 2017-04-05 07:23 | PN ---
DATE OF SERVICE: 03/08/2017 ATTENDING NOTE: This patient was seen and examined by me on 03/08/2017. I reviewed the progress note of my nurse practitioner, Ms. Roman. Discussed and agreed the same. Admitted with stroke with right-sided weakness and slurred speech. On examination, blood pressure 105/75, pulse ox 97% on room air. Speech is slightly slurred. Power in the right arm and leg is 4/5. Sensation preserved. ASSESSMENT: 1. Acute stroke location in the middle cerebral artery, likely ischemic in nature. 2. Coronary artery disease with prior history of myocardial infarction. PLAN: Continue patient on aspirin and Lipitor. Care was discussed with the patient.
== END 2017-03-11 17:07 | DRG 65 ==
LOC: EC 19:45 → 6SEL 21:38 → 4MS4W 03-10 13:32
PROVIDERS: ADMIT Hospitalist; ATTEND Hospitalist
DX: I63.512 Cerebral infarction due to unspecified occlusion or stenosis of left middle cerebral artery (principal); I69.351 Hemiplegia and hemiparesis following cerebral infarction affecting right dominant side; N17.9 Acute kidney failure, unspecified; I11.0 Hypertensive heart disease with heart failure; I50.22 Chronic systolic (congestive) heart failure; E11.9 Type 2 diabetes mellitus without complications; E66.9 Obesity, unspecified; E78.5 Hyperlipidemia, unspecified; I16.0 Hypertensive urgency; I25.10 Atherosclerotic heart disease of native coronary artery without angina pectoris; I25.2 Old myocardial infarction; Z68.33 Body mass index [BMI] 33.0-33.9, adult; Z79.82 Long term (current) use of aspirin; Z79.84 Long term (current) use of oral hypoglycemic drugs; Z79.899 Other long term (current) drug therapy; Z82.49 Family history of ischemic heart disease and other diseases of the circulatory system; Z88.0 Allergy status to penicillin
CPT/HCPCS: 36415; 70450; 70496; 71020; 76770; 80048; 80053; 80061; 82550; 82553; 83036; 84443; 84484; 85025; 85027; 85610; 85730; 93005; 93306; 93880; 96360; 99285

== ENCOUNTER → 2018-06-17 | Outpatient (CLI) | payer MEDICARE ==
[2018-06-17 13:01] LABS: HCT 37.6 % (34.0-46.0); HGB 12.6 gm/dL (11.4-16.0); MCH 28.7 pg (25.0-35.0); MCHC 33.4 g/dL (31.0-37.0); MCV 85.8 fL (80.0-100.0); Mean Platelet Volume 7.8; Platelet Count 177 k/uL (150-450); RBC 4.38 m/uL (3.80-5.40); RDW 13.3 % (11.5-15.5); WBC 8.6 k/uL (3.8-10.6)
[2018-06-17 13:17] LABS: Potassium 4.8 mmol/L (3.5-5.1)
== END | disposition home or self-care (01) ==
LOC: LABPAT 12:13
PROVIDERS: ATTEND Internal Medicine Cardiovascular Disease
DX: Z01.812 Encounter for preprocedural laboratory examination (principal); I25.5 Ischemic cardiomyopathy; I10 Essential (primary) hypertension; I25.810 Atherosclerosis of coronary artery bypass graft(s) without angina pectoris
CPT/HCPCS: 80051; 82565; 84520; 85027

== ENCOUNTER 2018-06-25 07:15 | Day surgery (SDC) | payer MEDICARE ==
[~2018-06-25 07:15] MED LIST: CLINDAMYCIN 600 MG in SODIUM CHLORIDE 0.9% IRRIGATIO 250 ML IRRIGATION ONE; CLINDAMYCIN 900 MG in DEXTROSE 5% IN WATER 50 ML IVPB ONE; SODIUM CHLORIDE 0.9% 1,000 ML IV SCH
[2018-06-25] MEDS ORDERED: SODIUM CHLORIDE 0.9% 500 ML IV ONE (07:56)
[2018-06-25 07:59] VITALS: RESP 16; TEMP 97.8
[2018-06-25 08:24] LABS: Glucose,Whole Blood 112 mg/dL (75-99)
[2018-06-25] MEDS ORDERED: LIDOCAINE 1% INJ 10MG/ML (20 ML MDV) ONE ×2 (08:36)
[2018-06-25] MEDS ORDERED: fentaNYL (PF) 50 MCG/ML 2 ML AMP ONE (08:36)
[2018-06-25] MEDS ORDERED: MIDAZOLAM 2 MG/2 ML VIAL ONE (08:36)
[2018-06-25] MEDS ORDERED: fentaNYL (PF) 50 MCG/ML 2 ML AMP IVP ONE (09:10)
[2018-06-25] MEDS ORDERED: LIDOCAINE 1% (PF) 10MG/ML VIAL SQ ONE (09:12)
[2018-06-25] MEDS ORDERED: LIDOCAINE 1% INJ 10MG/ML (20 ML MDV) SQ ONE (09:26)
[2018-06-25] MEDS ORDERED: ACETAMINOPHEN TAB 325 MG TAB PO PRN (10:01)
--- NOTE | 2018-06-25 10:15 | P.PCN ---
Date of Procedure: 06/25/18 Preoperative Diagnosis: History of biventricular ICD placement with evidence of battery depletion Postoperative Diagnosis: The same Procedure(s) Performed: Down grading of the by VVI ICD to biventricular pacemaker with battery replacement Description of Procedure: HISTORY: This is a 87-year-old female with history of biventricular ICD placement who has reached [facility]. Because of her age, it was decided to downgrade her device to biventricular pacemaker. Patient and family were explained the plan and the risks associated the procedure. CONSENT: I have discussed the risks and benefits as related to the above mentioned procedure and both sedation/analgesia as well as necessary blood product administration. The patient has indicated understanding and acceptance of the risks of the procedure discussed. PROCEDURE: Patient was brought to the lab in a fasting state. Patient was given IV fentanyl for sedation. The skin over the existing pulse generator was infiltrated with lidocaine. An incision was made in the skin and was deepened until the pectoral fascia was exposed. Hemostasis was obtained. The existing pulse generator was pulled out of the pocket. The leads were disconnected and were checked for thresholds. The defibrillator slits were And sutured to the floor. The atrial and right ventricular and left ventricular leads were connected to the proper ports. In the pocket was irrigated with antibiotic Conscious Sedation: Versed 0 mg Fentanyl 12.5 g Duration 40 minutes THRESHOLDS: ATRIAL: The minimum patient threshold was 1.8 V at pulse width of 1 ms. The impedance is 484 ohms P-wave: 3.8 mA RIGHT VENTRICULAR: The minimum patient threshold was 0.5 V at pulse width of 0.5 ms. The impedance was 789 ohms R-wave : Could not be measured. THE LEFT VENTRICLE: The minimum patient threshold is 1.3 V at pulse width of 1 ms patient. The impedance is 797. The R waves could not be measured THE LEADS: ATRIAL: Atrial lead is manufactured by [employer]. Model number is 4135 and the serial number is [id number]. RIGHT VENTRICULAR: This is manufactured by [employer]. Model number is 7120 and the serial number is [id number] THE LEFT VENTRICULAR: This is manufactured by [employer]. Model number is 4518. The serial number is [id number] THE EXPLANTED DEVICE:. This is manufactured by [employer]. A [employer]. Model number is N118 and the serial number is [id number] THE NEW DEVICE: This is manufactured by [employer]. Model number is N 118 and the serial number is [id number] The leads were then connected to a new pulse generator. Pacemaker seems to function normally. The pocket was irrigated with antibiotics. The pocket was closed in the usual fashion. Pectoral fascia was closed with 2-0 Prolene, the subcutaneous tissue was closed with 3-0 Prolene and the skin was closed with 4- 0 Prolene. Patient tolerated the procedure well . Patient will be monitored on the telemetry unit for 2-3 hours. If stable patient be discharged home later today. Programming: PROGRAMMED TO DDDR MODE WITH RATES OF 60-120. THERE OUTPUT SYNDROME. RIGHT ATRIUM IS 3.5 V AT 1 MS: THE RIGHT VENTRICLE IS 2 V AT 0.5 MS IN THE LEFT ventricle is 1.7 V at 1 ms PLAN:. Patient will monitored for several hours. If stable patient be discharged home later today FALLOW UP: With Dr. Espinosa in one week
[2018-06-25 10:54] VITALS: BMI 33.5
[2018-06-25 14:13] VITALS: BP 126/62; PULSE 59
== END 2018-06-25 14:59 | disposition home or self-care (01) ==
LOC: CATHEP 07:15 → 3OBS 09:55 → CATHEP 14:59
PROVIDERS: ATTEND Internal Medicine Cardiovascular Disease
DX: I25.5 Ischemic cardiomyopathy (principal); Z45.02 Encounter for adjustment and management of automatic implantable cardiac defibrillator; I25.10 Atherosclerotic heart disease of native coronary artery without angina pectoris; I10 Essential (primary) hypertension; E78.2 Mixed hyperlipidemia; Z79.82 Long term (current) use of aspirin; Z79.899 Other long term (current) drug therapy; Z88.5 Allergy status to narcotic agent; Z88.0 Allergy status to penicillin
CPT/HCPCS: 33241; 33221; C2621; J2001 ×2; J3010; 33229

== ENCOUNTER 2018-07-09 02:37 | Inpatient (IN) | payer MEDICARE ==
--- NOTE | 2018-07-09 02:50 | ED ---
General Adult HPI - General Stated complaint: Fall Time Seen by Provider: 07/09/18 02:39 Source: patient, EMS, RN notes reviewed, old records reviewed - History of Present Illness Initial comments: 88-year-old female presenting for evaluation of right hip pain status post fall. History obtained from both patient and EMS. She fell at home, this was ground-level. There was some head trauma although patient denies loss consciousness. She is not currently on blood thinners according to EMS. She has severe pain in her right hip. Denies chest pain. Denies abdominal pain. - Related Data Home Medications Medication Instructions Recorded Confirmed Aspirin EC [Ecotrin Low Dose] 81 mg PO DAILY 03/06/17 06/25/18 Atenolol [Tenormin] 25 mg PO DAILY 03/06/17 06/25/18 Cyanocobalamin [Vitamin B-12] 500 mcg PO DAILY 03/06/17 06/25/18 Docusate [Colace] 100 mg PO DAILY 03/06/17 06/25/18 Donepezil [Aricept] 10 mg PO HS 03/06/17 06/25/18 Escitalopram [Lexapro] 20 mg PO DAILY 03/06/17 06/25/18 Furosemide [Lasix] 20 mg PO DAILY 03/06/17 06/25/18 Losartan Potassium [Cozaar] 100 mg PO DAILY 03/06/17 06/25/18 Multivitamins, Thera [Multivitamin 1 tab PO DAILY 03/06/17 06/25/18 (formulary)] sitaGLIPtin [Januvia] 100 mg PO DAILY 03/06/17 06/25/18 Previous Rx's Medication Instructions Recorded Atorvastatin [Lipitor] 80 mg PO HS #30 tab 03/11/17 Clindamycin HCl [Cleocin] 300 mg PO Q8H #10 cap 06/25/18 Allergies Allergy/AdvReac Type Severity Reaction Status Date / Time Penicillins Allergy Rash/Hives Verified 06/18/18 14:52 meperidine [From Demerol] AdvReac Hallucinati Verified 06/18/18 15:10 ons morphine AdvReac Hallucinati Verified 06/18/18 15:10 ons Review of Systems ROS Statement: Those systems with pertinent positive or pertinent negative responses have been documented in the HPI. ROS Other: All systems not noted in ROS Statement are negative. Past Medical History Past Medical History: Coronary Artery Disease (CAD), CVA/TIA, Diabetes Mellitus , Hyperlipidemia, Hypertension, Myocardial Infarction ([place]), Osteoarthritis (OA) Additional Past Medical History / Comment(s): stroke February 2017-symptoms resolved other than uses a walker, one functioning kidney per daughter Last Myocardial Infarction Date:: 1984 History of Any Multi-Drug Resistant Organisms: None Reported Past Surgical History: Orthopedic Surgery, Pacemaker Additional Past Surgical History / Comment(s): shirin knees replaced Past Anesthesia/Blood Transfusion Reactions: No Reported Reaction Type of Cardiac Device: Permanent Pacemaker Device Placement Date:: 2001 Past Psychological History: Depression Smoking Status: Never smoker Past Alcohol Use History: None Reported Past Drug Use History: None Reported - Past Family History Father Family Medical History: Coronary Artery Disease (CAD) General Exam General appearance: alert, in no apparent distress Head exam: Present: atraumatic, normocephalic Eye exam: Present: normal appearance, PERRL ENT exam: Present: normal exam Neck exam: Present: normal inspection, full ROM. Absent: tenderness, meningismus Respiratory exam: Present: normal lung sounds bilaterally. Absent: respiratory distress, wheezes Cardiovascular Exam: Present: regular rate, normal rhythm GI/Abdominal exam: Present: soft. Absent: distended, tenderness, guarding Extremities exam: Present: other (Right lower extremity is internally rotated and shortened. Severe pain with any range of motion at the hip. Normal cap refill, distal pulses intact). Absent: full ROM, tenderness Neurological exam: Present: alert, oriented X3, CN II-XII intact. Absent: motor sensory deficit Skin exam: Present: warm, dry, intact. Absent: cyanosis, diaphoretic Course Vital Signs 07/09/18 07/09/18 02:40 04:05 Temperature 99.0 F Pulse Rate 60 61 Respiratory 17 17 Rate Blood Pressure 221/96 182/70 O2 Sat by Pulse 98 97 Oximetry EKG Findings - EKG Comments: EKG Findings:: EKG: Dual-chamber electronic pacer, rate of 60, WA interval 166, QRS duration 152, QTC 572, Medical Decision Making - Medical Decision Making 88-year-old female status post fall with right IT fracture. There was minor head injury, head CT is obtained is negative for intracranial hemorrhage or mass effect. CT cervical spine is negative for fracture subluxation. Chest x- ray negative for any acute cardiopulmonary disease. X-ray hip shows right IT fracture which is consistent with exam. Patient will be admitted to orthopedics with medicine on consult for medical management. Case is discussed with Dr. Martin, who will accept admission. - Lab Data Result diagrams: 07/09/18 02:47 07/09/18 02:47 Lab Results 07/09/18 07/09/18 07/09/18 Range/Units 02:47 02:47 02:47 WBC 12.1 H (3.8-10.6) k/uL RBC 4.61 (3.80-5.40) m/uL Hgb 12.8 (11.4-16.0) gm/dL Hct 40.1 (34.0-46.0) % MCV 86.9 (80.0-100.0) fL MCH 27.8 (25.0-35.0) pg MCHC 32.0 (31.0-37.0) g/dL RDW 13.3 (11.5-15.5) % Plt Count 189 (150-450) k/uL Neutrophils % 79 % Lymphocytes % 13 % Monocytes % 5 % Eosinophils % 1 % Basophils % 0 % Neutrophils # 9.5 H (1.3-7.7) k/uL Lymphocytes # 1.5 (1.0-4.8) k/uL Monocytes # 0.6 (0-1.0) k/uL Eosinophils # 0.2 (0-0.7) k/uL Basophils # 0.1 (0-0.2) k/uL PT (9.0-12.0) sec INR (<1.2) APTT (22.0-30.0) sec Sodium 137 (137-145) mmol/L Potassium 4.8 (3.5-5.1) mmol/L Chloride 102 (98-107) mmol/L Carbon Dioxide 24 (22-30) mmol/L Anion Gap 11 mmol/L BUN 37 H (7-17) mg/dL Creatinine 1.20 H (0.52-1.04) mg/dL Est GFR (CKD-EPI)AfAm 47 (>60 ml/min/1.73 sqM) Est GFR (CKD-EPI)NonAf 41 (>60 ml/min/1.73 sqM) Glucose 201 H (74-99) mg/dL Calcium 9.2 (8.4-10.2) mg/dL Total Bilirubin 0.4 (0.2-1.3) mg/dL AST 25 (14-36) U/L ALT 31 (9-52) U/L Alkaline Phosphatase 71 (38-126) U/L Total Protein 6.4 (6.3-8.2) g/dL Albumin 3.8 (3.5-5.0) g/dL Blood Type O Positive Blood Type Recheck No Antibody Screen NEGATIVE Spec Expiration Date 07/12/2018234607/09/18 Range/Units 02:47 WBC (3.8-10.6) k/uL RBC (3.80-5.40) m/uL Hgb (11.4-16.0) gm/dL Hct (34.0-46.0) % MCV (80.0-100.0) fL MCH (25.0-35.0) pg MCHC (31.0-37.0) g/dL RDW (11.5-15.5) % Plt Count (150-450) k/uL Neutrophils % % Lymphocytes % % Monocytes % % Eosinophils % % Basophils % % Neutrophils # (1.3-7.7) k/uL Lymphocytes # (1.0-4.8) k/uL Monocytes # (0-1.0) k/uL Eosinophils # (0-0.7) k/uL Basophils # (0-0.2) k/uL PT 10.5 (9.0-12.0) sec INR 1.1 (<1.2) APTT 24.6 (22.0-30.0) sec Sodium (137-145) mmol/L Potassium (3.5-5.1) mmol/L Chloride (98-107) mmol/L Carbon Dioxide (22-30) mmol/L Anion Gap mmol/L BUN (7-17) mg/dL Creatinine (0.52-1.04) mg/dL Est GFR (CKD-EPI)AfAm (>60 ml/min/1.73 sqM) Est GFR (CKD-EPI)NonAf (>60 ml/min/1.73 sqM) Glucose (74-99) mg/dL Calcium (8.4-10.2) mg/dL Total Bilirubin (0.2-1.3) mg/dL AST (14-36) U/L ALT (9-52) U/L Alkaline Phosphatase (38-126) U/L Total Protein (6.3-8.2) g/dL Albumin (3.5-5.0) g/dL Blood Type Blood Type Recheck Antibody Screen Spec Expiration Date Disposition Clinical Impression: Fall, Fracture, intertrochanteric, right femur Disposition: ADMITTED IP TO THIS [facility] Condition: Stable Is patient prescribed a controlled substance at d/c from ED?: No Referrals: Cheko Junior MD [Primary Care Provider] - 1-2 days Decision to Admit Reason: Admit from EC Decision Date: 07/09/18 Decision Time: 05:24
[2018-07-09 03:00] LABS: Basophils # (A) 0.1 k/uL (0-0.2); Basophils % (A) 0 %; Eosinophils # (A) 0.2 k/uL (0-0.7); Eosinophils % (A) 1 %; HCT 40.1 % (34.0-46.0); HGB 12.8 gm/dL (11.4-16.0); Lymphocytes # (A) 1.5 k/uL (1.0-4.8); Lymphocytes % (A) 13 %; MCH 27.8 pg (25.0-35.0); MCV 86.9 fL (80.0-100.0); Mean Platelet Volume 8.1; Monocytes # (A) 0.6 k/uL (0-1.0); Monocytes % (A) 5 %; Neutrophils # (A) 9.5 k/uL (1.3-7.7); Neutrophils % (A) 79 %; Platelet Count 189 k/uL (150-450); RBC 4.61 m/uL (3.80-5.40); RDW 13.3 % (11.5-15.5); WBC 12.1 k/uL (3.8-10.6)
[2018-07-09 03:08] LABS: Albumin 3.8 g/dL (3.5-5.0); Calcium 9.2 mg/dL (8.4-10.2); Potassium 4.8 mmol/L (3.5-5.1); Total Bilirubin 0.4 mg/dL (0.2-1.3); Total Protein 6.4 g/dL (6.3-8.2)
[2018-07-09 03:12] LABS: INR 1.1 (<1.2); Partial Thromboplastin Time 24.6 sec (22.0-30.0); Prothrombin Time 10.5 sec (9.0-12.0)
[2018-07-09] MEDS: SODIUM CHLORIDE 0.9% 1,000 ML IV SCH ×3 (03:55→18:10)
--- NOTE | 2018-07-09 04:00 | XR ---
EXAM: XR Right Hip With Pelvis When Performed, 2 or 3 Views CLINICAL HISTORY: ITS.REASON XR Reason: Pain TECHNIQUE: Two or three views of the right hip, with pelvis when performed. COMPARISON: No relevant prior studies available. FINDINGS: Bones/joints: Acute intertrochanteric fracture with displaced lesser trochanter and with varus angulation at the main fracture site. Normal alignment at the hip joint. No other significant abnormalities. Soft tissues: Unremarkable. Other findings: Findings/Impression: IMPRESSION: Acute intertrochanteric fracture with displaced lesser trochanter
--- NOTE | 2018-07-09 04:02 | XR ---
EXAM: XR Chest, 1 View CLINICAL HISTORY: ITS.REASON XR Reason: Pain TECHNIQUE: Frontal view of the chest. COMPARISON: No relevant prior studies available. FINDINGS: Lungs: No consolidation, pleural effusion or pneumothorax. Pleural space: See above. Heart: Top normal cardiac silhouette size and configuration. No mediastinal enlargement. No hilar enlargement. Mediastinum: See above. Bones/joints: No significant fluid or other osseous abnormalities. Tubes, lines and devices: No acute cardio pulmonary disease. Multilead AICD/pacer with intact wires. Intact sternotomy wires also. IMPRESSION: No acute cardiopulmonary disease.
--- NOTE | 2018-07-09 04:04 | CT ---
EXAM: CT Head Without Intravenous Contrast CLINICAL HISTORY: ITS.REASON CT Reason: Pain TECHNIQUE: Axial computed tomography images of the head/brain without intravenous contrast. CTDI is 59.43 mGy and DLP is 1135.1 mGy-cm. This CT exam was performed using one or more of the following dose reduction techniques: automated exposure control, adjustment of the mA and/or kV according to patient size, and/or use of iterative reconstruction technique. COMPARISON: No relevant prior studies available. FINDINGS: Brain: Unremarkable. No hemorrhage. No significant white matter disease. No edema. Ventricles: Unremarkable. No ventriculomegaly. Bones/joints: Unremarkable. No acute fracture. Soft tissues: Unremarkable. Sinuses: Unremarkable as visualized. No acute sinusitis. Mastoid air cells: Unremarkable as visualized. No mastoid effusion. IMPRESSION: No acute intracranial pathology. No acute calvarial fracture. EXAM: CT Cervical Spine Without Intravenous Contrast CLINICAL HISTORY: ITS.REASON CT Reason: Pain TECHNIQUE: Axial computed tomography images of the cervical spine without intravenous contrast. CTDI is 26.64 mGy and DLP is 472.[address] exam was performed using one or more of the following dose reduction techniques: automated exposure control, adjustment of the mA and/or kV according to patient size, and/or use of iterative reconstruction technique. COMPARISON: No relevant prior studies available. FINDINGS: Vertebrae: mGy-cm. No acute fracture. Discs/spinal canal/neural foramina: Multilevel spine degenerative changes. No spinal canal stenosis. Soft tissues: Unremarkable. IMPRESSION: No acute or healing fracture or malalignment.
[2018-07-09] MEDS ORDERED: HYDROmorphone 0.5 MG/0.5 ML SYRINGE IVP STA (05:19)
[2018-07-09] MEDS ORDERED: HYDROmorphone 0.5 MG/0.5 ML SYRINGE IVP PRN (05:21)
[2018-07-09] MEDS ORDERED: NALOXONE 0.4 MG/ML 1 ML VIAL IV PRN ×2 (05:21→15:55)
[2018-07-09] MEDS: ACETAMINOPHEN TAB 325 MG TAB PO PRN (05:34)
[2018-07-09 07:29] VITALS: BMI 35.2
--- NOTE | 2018-07-09 09:09 | P.HPOR ---
History of Present Illness H&P Date: 07/09/18 This is an 88 year-old female who is admitted for right hip fracture. Patient states that she was walking and turned to go a different direction, when she fell. Patient had a CT of the head and neck in the emergency room which was negative for any acute process. Patient denies being on any anticoagulants. Patient has a pacemaker. Patient denies any fever/chills, numbness, weakness, tingling, abdominal pain, shortness of breath or chest pain. Review of Systems See HPI. Past Medical History Past Medical History: Coronary Artery Disease (CAD), CVA/TIA, Diabetes Mellitus , Hyperlipidemia, Hypertension, Myocardial Infarction (AR), Osteoarthritis (OA) Additional Past Medical History / Comment(s): stroke February 2017-symptoms resolved other than uses a walker, one functioning kidney per daughter Last Myocardial Infarction Date:: 1984 History of Any Multi-Drug Resistant Organisms: None Reported Past Surgical History: Orthopedic Surgery, Pacemaker Additional Past Surgical History / Comment(s): shirin knees replaced Past Anesthesia/Blood Transfusion Reactions: No Reported Reaction Type of Cardiac Device: Permanent Pacemaker Device Placement Date:: 2001 Past Psychological History: Depression Smoking Status: Never smoker Past Alcohol Use History: None Reported Past Drug Use History: None Reported - Past Family History Father Family Medical History: Coronary Artery Disease (CAD) Medications and Allergies Home Medications Medication Instructions Recorded Confirmed Type Aspirin EC [Ecotrin Low Dose] 81 mg PO DAILY 03/06/17 06/25/18 History Atenolol [Tenormin] 25 mg PO DAILY 03/06/17 06/25/18 History Cyanocobalamin [Vitamin B-12] 500 mcg PO DAILY 03/06/17 06/25/18 History Docusate [Colace] 100 mg PO DAILY 03/06/17 06/25/18 History Donepezil [Aricept] 10 mg PO HS 03/06/17 06/25/18 History Escitalopram [Lexapro] 20 mg PO DAILY 03/06/17 06/25/18 History Furosemide [Lasix] 20 mg PO DAILY 03/06/17 06/25/18 History Losartan Potassium [Cozaar] 100 mg PO DAILY 03/06/17 06/25/18 History Multivitamins, Thera [Multivitamin 1 tab PO DAILY 03/06/17 06/25/18 History (formulary)] sitaGLIPtin [Januvia] 100 mg PO DAILY 03/06/17 06/25/18 History Atorvastatin [Lipitor] 80 mg PO HS #30 tab 03/11/17 06/25/18 Rx Clindamycin HCl [Cleocin] 300 mg PO Q8H #10 cap 06/25/18 Rx Allergies Allergy/AdvReac Type Severity Reaction Status Date / Time Penicillins Allergy Rash/Hives Verified 06/18/18 14:52 meperidine [From Demerol] AdvReac Hallucinati Verified 06/18/18 15:10 ons morphine AdvReac Hallucinati Verified 06/18/18 15:10 ons Physical Examination On exam patient is lying comfortably in bed no acute distress. Patient is alert and oriented. There is pain in the right hip. The right lower extremity is slightly shortened. Patient has full foot and ankle motion without pain or difficulty. Calf is soft and nontender to palpation. Exams of the head, neck, bilateral upper extremities and left lower extremity are within normal limits. Results X-rays of the right hip show an intertrochanteric fracture of the right femur. - Labs Labs: Abnormal Lab Results - Last 24 Hours (Table) 07/09/18 07/09/18 Range/Units 02:47 02:47 WBC 12.1 H (3.8-10.6) k/uL Neutrophils # 9.5 H (1.3-7.7) k/uL BUN 37 H (7-17) mg/dL Creatinine 1.20 H (0.52-1.04) mg/dL Glucose 201 H (74-99) mg/dL H & H 07/09/18 Range/Units 02:47 Hgb 12.8 (11.4-16.0) gm/dL Hct 40.1 (34.0-46.0) % Coagulation 07/09/18 Range/Units 02:47 INR 1.1 (<1.2) Result Diagrams: 07/09/18 02:47 07/09/18 02:47 Assessment and Plan (1) Fall Current Visit: Yes Status: Acute Code(s): W19.XXXA - UNSPECIFIED FALL, INITIAL ENCOUNTER SNOMED Code(s): 9945703 (2) Fracture, intertrochanteric, right femur Current Visit: Yes Status: Acute Code(s): S72.141A - DISPLACED INTERTROCHANTERIC FRACTURE OF RIGHT FEMUR, INIT SNOMED Code(s): 246250383 Plan: 1. Patient is to be NPO. 2. Continue pain control. 3. DVT prophylaxis with SCDs and MARITA hose. 4. Closed reduction and intramedullary hip screw fixation is planned for 16:30 on 07/09/2018 pending medical clearance and consent.
[2018-07-09] MEDS: FUROSEMIDE 20 MG TAB PO SCH (14:39)
[2018-07-09] MEDS: LOSARTAN 50 MG TAB PO SCH (14:39)
[2018-07-09] MEDS: ATENOLOL 25 MG TAB PO SCH (14:39)
[2018-07-09] MEDS ORDERED: IV FLUID CONTINUATION 1,000 ML IV ONE (15:35)
[2018-07-09 15:36] LABS: Glucose,Whole Blood 127 mg/dL (75-99)
[2018-07-09] MEDS ORDERED: DIAZEPAM 5 MG TAB PO PRN (15:55)
[2018-07-09] MEDS ORDERED: MAGNESIUM HYDROXIDE 2,400 MG/10 ML CUP PO PRN (15:55)
[2018-07-09] MEDS ORDERED: HYDROmorphone 1 MG/ML 1 ML SYRINGE IVP PRN ×2 (15:55)
[2018-07-09] MEDS ORDERED: traMADol 50 MG TAB PO PRN ×2 (15:58)
[2018-07-09] MEDS ORDERED: MIDAZOLAM 2 MG/2 ML VIAL ONE (16:02)
[2018-07-09] MEDS ORDERED: KETAMINE 10 MG/ML 20 ML VIAL ONE (16:02)
[2018-07-09] MEDS ORDERED: diphenhydrAMINE 50 MG/ML 1 ML VIAL ONE (16:02)
[2018-07-09] MEDS ORDERED: PROPOFOL 10 MG/ML 20 ML VIAL IV ONE (16:02)
[2018-07-09] MEDS ORDERED: fentaNYL (PF) 50 MCG/ML 2 ML AMP ONE (16:02)
[2018-07-09] MEDS ORDERED: LACTATED RINGERS 1,000 ML IV ONE (16:20)
[2018-07-09] MEDS ORDERED: SODIUM CHLORIDE 0.9% 50 ML with ceFAZolin 1,000 MG IV ONE ×4 (16:25)
[2018-07-09] MEDS ORDERED: ceFAZolin 3,000 MG in SODIUM CHLORIDE 0.9% IRRIGATIO 3,000 ML IRRIGATION ONE (16:47)
--- NOTE | 2018-07-09 17:15 | P.OP ---
Date of Procedure: 07/09/18 Preoperative Diagnosis: Four-part intertrochanteric fracture right hip Postoperative Diagnosis: Four-part intertrochanteric fracture right hip Procedure(s) Performed: Close reduction and intramedullary hip screw right hip Implants: [employer] intertan nail 130, 11.5 mm x 18 cm. [employer] Intertan integrated interlocking lag screw, 105 mm lag screw, 100 mm compression screw. [employer] L-P screw, 5.0 mm x 37.5 mm. Anesthesia: spinal Surgeon: Kelby Niño Color Specialist #1: Chelo Garcia Estimated Blood Loss (ml): 100 Pathology: none sent Condition: stable Disposition: PACU Indications for Procedure: As an 80-year-old female that sustained a four-part intertrochanteric fracture while falling at home. After reviewing x-rays and discussing the surgical and nonsurgical treatment options with the patient and family at length, I recommended a close reduction and intramedullary hip screw fixation of the right hip. That was obtained. Operative Findings: The operative findings are consistent with a four-part intertrochanteric fracture of the right hip Description of Procedure: The patient was seen in the preoperative area, consent was reviewed, and the operative site was marked with a skin marker. The patient was brought to the operating room and placed on the operating room table. Anesthesia was administered by the anesthesia department. 2 g of Ancef were administered intravenously. The patient was placed supine on the fracture table with the fractured extremity in traction boot. His other extremity was placed in a well leg ferrari and his bony prominences were padded. A universal timeout was then performed which confirmed the patient's name, surgical site, ALLERGIES, and consent. Fracture reduction was performed with traction and adduction maneuver which was confirmed with fluoroscopy. After reduction was performed, the extremity was then prepped and draped in the usual sterile fashion. Utilizing fluoroscopy to identify the tip of the greater trochanter, a 3 cm incision was made just proximal to the greater trochanter. Utilizing a curved awl, the starting hole was created at the tip of the greater trochanter and centralized in the AP plane. These locations were confirmed by fluoroscopy. Guidewire was then inserted down the medullary canal. Sequentially reaming of the femur was performed to 13 mm distally and 17 mm proximally. After reaming, appropriate size nail was inserted over the guidewire. The nail was inserted to the appropriate depth and the guidewire was removed. The lag screw targeting device was placed in the jig and a small skin incision was made and the targeting guide was placed down to bone. Utilizing the distally threaded guidewire, the guidewire was placed in the appropriate position in the femoral head, both anterior, posterior and mediolateral. Next, the drill for the second screw was then placed through the guide and drilled to the appropriate depth. The guidewire was measured and the appropriate depth was then reamed. The final size screw was placed to the appropriate depth. Traction was released and the fracture site was compressed with the aid of the second screw. The proximal drill guide was then removed and the distal drill guide was then inserted in the jig. Skin incision was made down to bone and the distal drill guide was then placed. Distal hole was then drilled and measured to the appropriate depth. Distal screw was then placed. The entire jig was then removed and final fluoroscopic x-rays were obtained. The wounds were then irrigated copiously with saline solution. Fascia was closed with 0-Vicryl. Subcutaneous tissues were closed with 2-0 Vicryl and the skin was closed with shy. Sterile dressings were applied. The patient was transported to the recovery room in stable condition. The special events assistant AMANDO Pandya was required due the complexity of surgery the need for skilled surgical clinical reviewer for positioning draping retraction and fracture reduction.
--- NOTE | 2018-07-09 18:06 | XR ---
EXAMINATION TYPE: XR Hip Limited RT DATE OF EXAM: 07/09/2018 COMPARISON: Today HISTORY: Hip surgery TECHNIQUE: Single view. FINDINGS: There is a pin and transverse screw fixing the intertrochanteric comminuted fracture of the right fem ur in anatomic position. Fragments are in reasonable anatomic position. IMPRESSION: Satisfactory fixation. No complicating process seen.
[2018-07-09] MEDS: ceFAZolin IN SWFI 2 GM/20 ML SYRINGE IVP SCH ×2 (18:09→23:33)
[2018-07-09 19:16] LABS: Basophils % (A) 0 %; Eosinophils # (A) 0.1 k/uL (0-0.7); Eosinophils % (A) 1 %; HGB 11.8 gm/dL (11.4-16.0); Lymphocytes # (A) 1.6 k/uL (1.0-4.8); Lymphocytes % (A) 10 %; MCHC 31.2 g/dL (31.0-37.0); MCV 89.8 fL (80.0-100.0); Mean Platelet Volume 7.9; Monocytes % (A) 7 %; Neutrophils # (A) 12.4 k/uL (1.3-7.7); Neutrophils % (A) 81 %; Platelet Count 156 k/uL (150-450); RBC 4.23 m/uL (3.80-5.40); RDW 13.3 % (11.5-15.5); WBC 15.3 k/uL (3.8-10.6)
[2018-07-09 20:00] LABS: Glucose,Whole Blood 141 mg/dL (75-99)
[2018-07-09] MEDS: HYDROmorphone 1 MG/ML 1 ML SYRINGE IVP PRN (20:41)
[2018-07-09] MEDS: DONEPEZIL 10 MG TAB PO SCH (21:44)
[2018-07-09] MEDS: ATORVASTATIN 80 MG TAB PO SCH (21:44)
[2018-07-09] MEDS: SENNOSIDES-DOCUSATE SODIUM 1 EACH TAB PO SCH (21:44)
--- NOTE | 2018-07-09 22:33 | CONS ---
CONSULTATION DATE OF CONSULTATION: 07/09/2018 REASON FOR CONSULTATION: Medical management requested by Dr. Niño. CONSULTATION: This is a patient I saw this morning on [facility] and told the nurse that the patient is medically stable to proceed for surgery. The patient does follow with Dr. Junior. Chronic stable medical conditions include diabetes, hyperlipidemia, hypertension, osteoarthritis. The patient did have a stroke in February 2017. The patient also has 1 functioning kidney. The patient also had a myocardial infarction about 30 years ago, has a permanent pacemaker. The patient took a fall at home at ground level. The patient is slightly bumped her head, but never passed out. It was not significant. The patient is having significant pain in the right hip and hip x-ray showed intertrochanteric fracture with a displaced lesser trochanter. The patient normally uses a walker or a cane to get about. Denies any chest pain or palpitation. Patient does have a pacemaker. REVIEW OF SYSTEMS: CONSTITUTIONAL: Tired. HEENT: Decreased hearing. RESPIRATORY: None. CARDIOVASCULAR: None. GASTROINTESTINAL: None. GENITOURINARY: None. MUSCULOSKELETAL: Pain, especially in the right hip. DERMATOLOGICAL: None. HEMATOLOGIC: None. LYMPHATIC: None. PSYCHIATRY: None. NEUROLOGICAL: None. PAST MEDICAL HISTORY: Coronary artery disease with NM 30 years ago, diabetes mellitus type 2, hyperlipidemia, hypertension, stroke, osteoarthritis, 1 functioning kidney. PAST SURGICAL HISTORY: Orthopedic surgery, pacemaker, bilateral knee replaced, put on pacemaker, changed to a biventricular permanent pacemaker recently. PSYCH HISTORY: Depression. SOCIAL HISTORY: No smoking, no alcohol. Lives alone. Daughter lives next door. FAMILY HISTORY: Coronary artery disease. HOME MEDICATIONS: 1. Januvia 100 mg p.o. daily. 2. Multivitamin 1 tablet p.o. daily. 3. Cozaar 100 mg p.o. daily. 4. Lasix 20 mg p.o. daily. 5. Lexapro 20 mg p.o. daily. 6. Aricept 10 mg p.o. q.h.s. 7. Colace 100 mg p.o. daily. 8. Vitamin B12 500 mcg p.o. daily. 9. Lipitor 80 mg p.o. at bedtime. 10.Tenormin 25 mg p.o. daily. 11.Aspirin 81 mg p.o. daily. ALLERGIES: To PENICILLIN, MEPERIDINE, MORPHINE. EXAMINATION: Temperature 98.5, pulse 68, respirations 17, blood pressure 134/69, pulse ox 95% on room air. GENERAL APPEARANCE: Well-built, BMI 35.3. Lying in bed, awake. EYES: Pupils equal. Conjunctivae normal. HEENT: External nose and ears normal. Oral cavity dry. NECK: JVD unable to assess. Mass not palpable. RESPIRATORY: Effort normal. LUNGS: Fair air entry. CARDIOVASCULAR: First and second sounds normal. No edema. ABDOMEN: Soft, nontender. Liver and spleen not palpable. LYMPHATIC: No lymph node palpable in neck or axillae. PSYCHIATRY: Alert and oriented x3. Mood and affect normal. MUSCULOSKELETAL: Evidence of osteoarthritis, especially in the hands. Limited range of motion of the right hip. INVESTIGATIONS: White count 12.1, hemoglobin 12.8. Potassium 4.8, BUN 37, creatinine 1.20. Hip x-ray showing fracture of the right hip. Chest x-ray film interpreted by me shows some cardiomegaly, sternal wires and a pacemaker in place. EKG tracing interpreted by me shows a paced rhythm. ASSESSMENT: 1. Acute right intertrochanteric hip fracture secondary to fall. 2. Coronary artery disease with history of myocardial infarction over 30 years ago, stable. 3. Obesity; BMI 35.3. 4. Diabetes mellitus type 2 on oral hypoglycemic. 5. Essential hypertension. 6. Depression, not otherwise specified. 7. 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 8. Hyperlipidemia. PLAN: I conveyed to the nurse that the patient is medically stable to proceed for surgery with no absolute contraindications. Home medications will be continued. Accu-Cheks are to be followed. The patient has a slight bump in white count. The patient denies any urinary symptoms. We will follow the patient clinically. Thank you, Dr. Niño. MMODL / IJN: [id number] /
[2018-07-10] MEDS: SODIUM CHLORIDE 0.9% 1,000 ML IV SCH ×4 (03:14→20:17)
--- NOTE | 2018-07-10 08:30 | P.PN ---
Subjective Progress Note Date: 07/10/18 This is an 88-year-old female who is status post closed reduction with intramedullary hip screw fixation of the right hip. This is postoperative day # 1. Patient states that she is comfortable and her pain is well-controlled. Patient denies any new complaints today. Patient denies any fever/chills, numbness, weakness, tingling, abdominal pain, shortness of breath or chest pain. Objective - Vital Signs Vital signs: Vital Signs Temp 98.1 F 07/10/18 07:09 Pulse 60 07/10/18 07:09 Resp 14 07/10/18 07:09 BP 106/54 07/10/18 07:09 Pulse Ox 98 07/10/18 07:09 Intake & Output 07/09/18 07/10/18 07/10/18 18:59 06:59 18:59 Intake Total 301 Output Total 250 425 Balance 51 -425 Weight 90.265 kg Intake: IV 301 Output: Urine 150 425 Estimated Blood Loss 100 Other: Voiding Method Indwelling Catheter Indwelling Catheter - Exam Vital signs are stable. Patient is in no acute distress and is alert and oriented 3. Calf is soft and nontender to palpation. Dressing is clean, dry, and intact. Patient has full foot and ankle motion without pain or difficulty. Neurovascular status and circulatory status are intact. - Labs CBC & Chem 7: 07/09/18 19:01 07/09/18 02:47 Labs: Abnormal Lab Results - Last 24 Hours (Table) 07/09/18 07/09/18 07/09/18 Range/Units 15:32 19:01 19:59 WBC 15.3 H (3.8-10.6) k/uL Neutrophils # 12.4 H (1.3-7.7) k/uL POC Glucose (mg/dL) 127 H 141 H (75-99) mg/dL Assessment and Plan (1) Fall Current Visit: Yes Status: Acute Code(s): W19.XXXA - UNSPECIFIED FALL, INITIAL ENCOUNTER SNOMED Code(s): 2571325 (2) Fracture, intertrochanteric, right femur Current Visit: Yes Status: Acute Code(s): S72.141A - DISPLACED INTERTROCHANTERIC FRACTURE OF RIGHT FEMUR, INIT SNOMED Code(s): 183115051 (3) Status post hip surgery Current Visit: Yes Status: Acute Code(s): Z98.890 - OTHER SPECIFIED POSTPROCEDURAL STATES SNOMED Code(s): 176640786 Plan: Continue routine postop care. Continue antocoagulation with Xarelto. Toe-touch weight-bearing right lower extremity. Daily dressing changes. Likely discharge to rehab Saturday or Saturday.
[2018-07-10] MEDS: CYANOCOBALAMIN 500 MCG TAB PO SCH (08:47)
[2018-07-10] MEDS: ATENOLOL 25 MG TAB PO SCH (08:47)
[2018-07-10] MEDS: DOCUSATE 100 MG CAP PO SCH (08:47)
[2018-07-10] MEDS: ESCITALOPRAM 20 MG TAB PO SCH (08:48)
[2018-07-10] MEDS: HYDROmorphone 1 MG/ML 1 ML SYRINGE IVP PRN (08:48)
[2018-07-10] MEDS: LINAGLIPTIN 5 MG TABLET PO SCH (08:48)
[2018-07-10] MEDS: RIVAROXABAN 10 MG TAB PO SCH (08:48)
[2018-07-10] MEDS: LOSARTAN 50 MG TAB PO SCH (08:48)
[2018-07-10] MEDS: FUROSEMIDE 20 MG TAB PO SCH (08:48)
--- NOTE | 2018-07-10 08:55 | FL ---
EXAMINATION TYPE: FL guidance operating room DATE OF EXAM: 07/09/2018 HISTORY: Flouroscopy time 45 seconds of fluoroscopy provided. IMPRESSION: 1. Fluoroscopy time.
[2018-07-10] MEDS: MULTIVITAMINS, THERA 1 EACH TAB PO SCH (12:45)
[2018-07-10] MEDS: ACETAMINOPHEN TAB 325 MG TAB PO PRN ×2 (12:53→20:16)
[2018-07-10 16:48] LABS: Glucose,Whole Blood 222 mg/dL (75-99)
[2018-07-10] MEDS: INSULIN ASPART 100 UNIT/ML 1 ML 10 ML VIAL SQ SCH ×2 (17:42→20:20)
[2018-07-10] MEDS: SENNOSIDES-DOCUSATE SODIUM 1 EACH TAB PO SCH (20:16)
[2018-07-10] MEDS: ATORVASTATIN 80 MG TAB PO SCH (20:16)
[2018-07-10] MEDS: DONEPEZIL 10 MG TAB PO SCH (20:16)
[2018-07-10 20:29] LABS: Glucose,Whole Blood 207 mg/dL (75-99)
[2018-07-10 23:20] LABS: Glucose,Whole Blood 170 mg/dL (75-99)
[2018-07-11] MEDS ORDERED: HYDROmorphone 2 MG TAB PO PRN ×3 (02:26→02:27)
[2018-07-11 06:58] LABS: Glucose,Whole Blood 175 mg/dL (75-99)
--- NOTE | 2018-07-11 07:44 | PN ---
PROGRESS NOTE DATE OF SERVICE: 07/10/2018 INTERVAL HISTORY: Patient was seen by me yesterday morning. Post procedure, patient doing well. Pain is controlled. Tolerating a diet. Daughter is at the bedside. No chest pain or short of breath. REVIEW OF SYSTEMS: Done for constitutional, cardiovascular, GI, pulmonary; relevant findings as above. CURRENT MEDICATIONS: Reviewed. PHYSICAL EXAMINATION: Temperature 98.1, pulse 62, respiration 14, blood pressure 106/54, pulse ox 98% on 2 L. GENERAL APPEARANCE: Lying in bed, awake. EYES: Pupils equal, conjunctivae are normal. HEENT: External appearance of nose and ear normal, oral cavity normal. NECK: JVD not raised. Mass not palpable. RESPIRATORY: Effort normal. Lungs are clear. CARDIOVASCULAR: First and second sounds are normal, no edema. ABDOMEN: Soft, nontender. Liver and spleen not palpable. PSYCHIATRY: Alert and oriented x3. Mood and affect was normal. INVESTIGATIONS: Accu-Cheks are noted. ASSESSMENT: 1. Acute right intertrochanteric hip fracture secondary to fall, followed by surgical repair. 2. Coronary artery disease with history of myocardial infarction over 30 years ago. 3. Obesity; body mass index of 35.3. 4. Diabetes mellitus type 2, on oral hypoglycemic. 5. Essential hypertension. 6. Depression, not otherwise specified. 7. Mild cognitive impairment, probably from late onset dementia. 8. Hyperlipidemia. PLAN: Continue current medication and treatment plan. Care was discussed with daughter at the bedside. MMODL / IJN: [id number] /
[2018-07-11 08:11] LABS: Basophils % (A) 0 %; Eosinophils # (A) 0.3 k/uL (0-0.7); Eosinophils % (A) 2 %; HCT 26.8 % (34.0-46.0); Lymphocytes # (A) 1.4 k/uL (1.0-4.8); Lymphocytes % (A) 9 %; MCH 28.8 pg (25.0-35.0); MCV 89.9 fL (80.0-100.0); Mean Platelet Volume 8.5; Monocytes # (A) 1.2 k/uL (0-1.0); Monocytes % (A) 8 %; Neutrophils # (A) 11.8 k/uL (1.3-7.7); Neutrophils % (A) 79 %; Platelet Count 121 k/uL (150-450); RBC 2.98 m/uL (3.80-5.40); RDW 13.5 % (11.5-15.5); WBC 14.9 k/uL (3.8-10.6)
[2018-07-11] MEDS: LOSARTAN 50 MG TAB PO SCH (08:12)
[2018-07-11] MEDS: SODIUM CHLORIDE 0.9% 1,000 ML IV SCH ×3 (08:12→20:33)
[2018-07-11] MEDS: CYANOCOBALAMIN 500 MCG TAB PO SCH (08:13)
[2018-07-11] MEDS: RIVAROXABAN 10 MG TAB PO SCH (08:13)
[2018-07-11] MEDS: ATENOLOL 25 MG TAB PO SCH (08:13)
[2018-07-11] MEDS: DOCUSATE 100 MG CAP PO SCH (08:13)
[2018-07-11] MEDS: FUROSEMIDE 20 MG TAB PO SCH (08:13)
[2018-07-11] MEDS: LINAGLIPTIN 5 MG TABLET PO SCH (08:13)
[2018-07-11] MEDS: INSULIN ASPART 100 UNIT/ML 1 ML 10 ML VIAL SQ SCH ×4 (08:13→20:31)
[2018-07-11] MEDS: ESCITALOPRAM 20 MG TAB PO SCH (08:13)
[2018-07-11 08:14] LABS: HGB 8.6 gm/dL (11.4-16.0)
--- NOTE | 2018-07-11 08:15 | P.PN ---
Subjective Progress Note Date: 07/11/18 This is an 88-year-old female who is status post closed reduction with intramedullary hip screw fixation of the right hip. This is postoperative day # 2. Patient states that her pain is well-controlled. Patient denies any new complaints today. Patient denies any fever/chills, numbness, weakness, tingling , abdominal pain, shortness of breath or chest pain. Objective - Vital Signs Vital signs: Vital Signs Temp 98.7 F 07/11/18 07:50 Pulse 60 07/11/18 07:50 Resp 16 07/11/18 07:50 BP 145/68 07/11/18 07:50 Pulse Ox 97 07/11/18 07:50 Intake & Output 07/10/18 07/11/18 07/11/18 18:59 06:59 18:59 Intake Total 455 1320 Output Total 500 525 Balance -45 795 Intake: Intake, IV Titration 455 1120 Amount Sodium Chloride 0.9% 1, 455 520 000 ml @ 65 mls/hr IV . [id number] [facility] Rx#:[id number] Sodium Chloride 0.9% 1, 600 000 ml @ 75 mls/hr IV . [id number] [facility] Rx#:[id number] Other 200 Output: Urine 500 525 Uretheral (Hoffman) 525 Other: Voiding Method Indwelling Catheter Indwelling Catheter - Exam Vital signs are stable. Patient is in no acute distress and is alert and oriented 3. Calf is soft and nontender to palpation. Dressing is clean, dry, and intact. Patient has full foot and ankle motion without pain or difficulty. Neurovascular status and circulatory status are intact. - Labs CBC & Chem 7: 07/11/18 06:52 07/09/18 02:47 Labs: Abnormal Lab Results - Last 24 Hours (Table) 07/10/18 07/10/18 07/10/18 Range/Units 16:46 20:15 23:17 WBC (3.8-10.6) k/uL RBC (3.80-5.40) m/uL Hgb (11.4-16.0) gm/dL Hct (34.0-46.0) % Plt Count (150-450) k/uL Neutrophils # (1.3-7.7) k/uL Monocytes # (0-1.0) k/uL POC Glucose (mg/dL) 222 H 207 H 170 H (75-99) mg/dL 07/11/18 07/11/18 Range/Units 06:52 06:54 WBC 14.9 H (3.8-10.6) k/uL RBC 2.98 L (3.80-5.40) m/uL Hgb 8.6 L D (11.4-16.0) gm/dL Hct 26.8 L (34.0-46.0) % Plt Count 121 L (150-450) k/uL Neutrophils # 11.8 H (1.3-7.7) k/uL Monocytes # 1.2 H (0-1.0) k/uL POC Glucose (mg/dL) 175 H (75-99) mg/dL Assessment and Plan (1) Fall Current Visit: Yes Status: Acute Code(s): W19.XXXA - UNSPECIFIED FALL, INITIAL ENCOUNTER SNOMED Code(s): 6664453 (2) Fracture, intertrochanteric, right femur Current Visit: Yes Status: Acute Code(s): S72.141A - DISPLACED INTERTROCHANTERIC FRACTURE OF RIGHT FEMUR, INIT SNOMED Code(s): 012150607 (3) Status post hip surgery Current Visit: Yes Status: Acute Code(s): Z98.890 - OTHER SPECIFIED POSTPROCEDURAL STATES SNOMED Code(s): 782070889 Plan: Continue routine postop care. Continue antocoagulation with Xarelto. Toe-touch weight-bearing right lower extremity. Daily dressing changes. Likely discharge to rehab in the near future.
[2018-07-11] MEDS: ACETAMINOPHEN TAB 325 MG TAB PO PRN ×2 (11:20→17:58)
[2018-07-11 11:43] LABS: Glucose,Whole Blood 212 mg/dL (75-99)
[2018-07-11] MEDS: MULTIVITAMINS, THERA 1 EACH TAB PO SCH (12:42)
[2018-07-11 17:06] LABS: Glucose,Whole Blood 202 mg/dL (75-99)
[2018-07-11 18:57] VITALS: TEMP 98.6
[2018-07-11 19:46] LABS: Hemoglobin A1C 7.1 % (4.0-6.0)
[2018-07-11] MEDS: ATORVASTATIN 80 MG TAB PO SCH (20:19)
[2018-07-11] MEDS: DONEPEZIL 10 MG TAB PO SCH (20:19)
[2018-07-11] MEDS: SENNOSIDES-DOCUSATE SODIUM 1 EACH TAB PO SCH (20:19)
[2018-07-11 20:30] LABS: Glucose,Whole Blood 253 mg/dL (75-99)
[2018-07-11 23:45] VITALS: BP 128/53; RESP 18
[2018-07-12] MEDS: SODIUM CHLORIDE 0.9% 1,000 ML IV SCH (05:38)
[2018-07-12 07:04] LABS: Glucose,Whole Blood 147 mg/dL (75-99)
[2018-07-12] MEDS ORDERED: FERROUS SULFATE 325 MG TAB PO SCH (07:30)
[2018-07-12 08:51] VITALS: PULSE 60
--- NOTE | 2018-07-12 09:03 | PN ---
PROGRESS NOTE DATE OF SERVICE: 07/11/2018 PRESENTING COMPLAINT: Right hip surgery. INTERVAL HISTORY: The patient is seen by me on July 11, 2018. The patient is stable. Tolerating a diet. No new issues. Pain is controlled. No chest pain or short of breath. REVIEW OF SYSTEMS: Done for constitutional, cardiovascular, GI, pulmonary, musculoskeletal and relevant findings as above. CURRENT MEDICATIONS: Reviewed. PHYSICAL EXAMINATION: VITAL SIGNS: Temperature 98.7, pulse 60, respirations 18, blood pressure 145/68, pulse ox 97 percent on 2 L. GENERAL APPEARANCE: Sitting up in a chair, comfortable. EYES: Pupils equal. Conjunctivae normal. HEENT: External appearance of nose and ears normal. Oral cavity normal. NECK: JVD not raised. Mass not palpable. RESPIRATORY effort normal. LUNGS: Clear. CARDIOVASCULAR: 1st and 2nd sounds normal. No edema. ABDOMEN: Soft, nontender. Liver and spleen not palpable. PSYCHIATRY: Alert and oriented x3. Mood and affect normal. INVESTIGATIONS: White count 14.9, hemoglobin 8.6, platelets 121. ASSESSMENT: 1. Acute right IT hip fracture secondary to fall followed by surgical repair. 2. Coronary artery disease with history of myocardial infarction over 30 years ago. 3. Obesity; BMI 35.3. 4. Diabetes mellitus type 2 on oral hypoglycemic. 5. Essential hypertension. 6. Depression, not otherwise specified. 7. 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 8. Hyperlipidemia. 9. Acute blood loss anemia expected from surgery. PLAN: Continue current medication and treatment plan. Infected operative site healing well per Surgery. We will add iron supplementation. Care was discussed with the patient's daughter at the bedside. MMODL / IJN: [id number] /
[2018-07-12] MEDS: ATENOLOL 25 MG TAB PO SCH (09:47)
[2018-07-12] MEDS: FUROSEMIDE 20 MG TAB PO SCH (09:47)
[2018-07-12] MEDS: ESCITALOPRAM 20 MG TAB PO SCH (09:47)
[2018-07-12] MEDS: LINAGLIPTIN 5 MG TABLET PO SCH (09:47)
[2018-07-12] MEDS: DOCUSATE 100 MG CAP PO SCH (09:47)
[2018-07-12] MEDS: CYANOCOBALAMIN 500 MCG TAB PO SCH (09:47)
[2018-07-12] MEDS: LOSARTAN 50 MG TAB PO SCH (09:47)
[2018-07-12] MEDS: RIVAROXABAN 10 MG TAB PO SCH (09:47)
[2018-07-12] MEDS: INSULIN ASPART 100 UNIT/ML 1 ML 10 ML VIAL SQ SCH ×2 (09:48→13:00)
--- NOTE | 2018-07-12 11:16 | P.DS ---
Providers Date of admission: 07/09/18 05:21 Expected date of discharge: 07/12/18 Attending physician: Kelby Niño Consults: 07/09/18 05:22 Consult Physician Routine Consulting Provider: Tee Bolaños Consult Reason/Comments: Medical management Do you want consulting provider notified?: Yes Primary care physician: Cheko Junior - Discharge Diagnosis(es) (1) Fracture, intertrochanteric, right femur Patient was admitted to the OR on 07/09/2018 to undergo IT nail fixation for right hip fracture. She had suffered a fall resulting in a right intertrchanteric hip fracture and desired to proceed with surgery. She underwent the above procedure which she tolerated well without complication. Postoperative hospital course has remained without complication. On day of discharge she is afebrile, vital signs stable, labs within acceptable ranges, tolerating by mouth meds and diet, voiding without difficulty, positive flatus, denies abdominal pain or calf pain, pain is controlled on oral pain medication and has no new complaints. Wound is benign, neurovascular status is intact, calf is soft and nontender, abdomen soft and nontender. Review of systems is negative for numbness, tingling, fever, chills, chest pain, shortness breath, nausea, vomiting, dizziness, headaches, slurred speech or other. Current Visit: Yes Status: Acute Priority: Medium Procedures: IT NAIl right hip Patient Condition at Discharge: Good Plan - Discharge Summary Discharge Rx Participant: Yes New Discharge Prescriptions: New Acetaminophen Tab [Tylenol Tab] 1 - 2 tab PO Q8H PRN #90 tablet PRN Reason: Pain Rivaroxaban [Xarelto] 10 mg PO DAILY #30 tab Sennosides [Senokot] 1 tab PO BID #60 tablet traMADol HCl [Ultram] 1 - 2 tab PO Q6H PRN #56 tab PRN Reason: Pain Ferrous Sulfate [Iron (65 MG Elemental)] 325 mg PO BID-W/MEALS tab Insulin Aspart [NovoLOG (formulary)] 0 unit SQ ACHS vial Continue Escitalopram [Lexapro] 20 mg PO DAILY Donepezil [Aricept] 10 mg PO HS Furosemide [Lasix] 20 mg PO DAILY Atenolol [Tenormin] 25 mg PO DAILY Multivitamins, Thera [Multivitamin (formulary)] 1 tab PO DAILY Cyanocobalamin [Vitamin B-12] 500 mcg PO DAILY sitaGLIPtin [Januvia] 100 mg PO DAILY Losartan Potassium [Cozaar] 100 mg PO DAILY Atorvastatin [Lipitor] 80 mg PO HS #30 tab Discontinued Docusate [Colace] 100 mg PO DAILY Aspirin EC [Ecotrin Low Dose] 81 mg PO DAILY Discharge Medication List Atenolol [Tenormin] 25 mg PO DAILY 03/06/17 [History] Cyanocobalamin [Vitamin B-12] 500 mcg PO DAILY 03/06/17 [History] Donepezil [Aricept] 10 mg PO HS 03/06/17 [History] Escitalopram [Lexapro] 20 mg PO DAILY 03/06/17 [History] Furosemide [Lasix] 20 mg PO DAILY 03/06/17 [History] Losartan Potassium [Cozaar] 100 mg PO DAILY 03/06/17 [History] Multivitamins, Thera [Multivitamin (formulary)] 1 tab PO DAILY 03/06/17 [History ] sitaGLIPtin [Januvia] 100 mg PO DAILY 03/06/17 [History] Atorvastatin [Lipitor] 80 mg PO HS #30 tab 03/11/17 [Rx] Acetaminophen Tab [Tylenol Tab] 1 - 2 tab PO Q8H PRN #90 tablet 07/11/18 [Rx] Rivaroxaban [Xarelto] 10 mg PO DAILY #30 tab 07/11/18 [Rx] Sennosides [Senokot] 1 tab PO BID #60 tablet 07/11/18 [Rx] traMADol HCl [Ultram] 1 - 2 tab PO Q6H PRN #56 tab 07/11/18 [Rx] Ferrous Sulfate [Iron (65 MG Elemental)] 325 mg PO BID-W/MEALS tab 07/12/18 [Rx ] Insulin Aspart [NovoLOG (formulary)] 0 unit SQ ACHS vial 07/12/18 [Rx] Follow up Appointment(s)/Referral(s): Cheko Junior MD [Primary Care Provider] - 1-2 days Kelby Niño DO [Doctor of Osteopathic Medicine] - 10 Days Activity/Diet/Wound Care/Special Instructions: Toe-touch weightbearing with walker. May shower after 2 days if no drainage from the incision [place] to be removed in 10-14 days. Follow-up with [facility] in 10 days with any questions or concerns, please call with any questions or concerns, Discharge Disposition: TRANSFER TO SNF/ECF
[2018-07-12 12:03] LABS: Glucose,Whole Blood 268 mg/dL (75-99)
[2018-07-12] MEDS: MULTIVITAMINS, THERA 1 EACH TAB PO SCH (12:59)
--- NOTE | 2018-07-12 20:42 | PN ---
PROGRESS NOTE DATE OF SERVICE: 07/12/2018. PRESENTING COMPLAINT: Right hip surgery. INTERVAL HISTORY: The patient is seen by me earlier today. Doing well. Pain is controlled. No nausea, vomiting, tolerating a diet. Has been out of bed. REVIEW OF SYSTEMS: Done for constitutional, cardiovascular, GI, pulmonary, musculoskeletal; relevant findings as above. CURRENT MEDICATIONS: Reviewed. EXAMINATION: Temperature 98.6, pulse 60, respirations 18, blood pressure 128/53, pulse 98% on room air. GENERAL APPEARANCE: Sitting up, comfortable. EYES: Pupils equal. Conjunctivae normal. HEENT: External nose and ears normal. Oral cavity normal. NECK: JVD not raised. Mass not palpable. RESPIRATORY: Effort normal. Lungs are clear. CARDIOVASCULAR: First and second sounds normal. No edema. ABDOMEN: Soft, nontender. Liver and spleen not palpable. PSYCHIATRY: Alert and oriented x3. Mood and affect normal. INVESTIGATIONS: Accu-Cheks are noted. ASSESSMENT: 1. Acute right intertrochanteric fracture secondary to fall followed by surgical intervention. 2. Coronary artery disease with history of myocardial infarction over 30 years ago. 3. Obesity; BMI of 45.3. 4. Diabetes mellitus type 2 on oral hypoglycemic. 5. Essential hypertension. 6. Depression, not otherwise specified. 7. 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 8. Hyperlipidemia. 9. Acute blood loss anemia, expected after surgery. PLAN: Patient is stable. Continue current medication and treatment plan. Care was discussed with the patient and questions were answered. MMVONL / KENDRICKN: [id number] /
== END 2018-07-12 13:30 | DRG 481 ==
LOC: EC 02:37 → 3SUR 05:21
PROVIDERS: ADMIT Orthopaedic Surgery; ATTEND Orthopaedic Surgery
PROC: 0QS636Z Reposition Right Upper Femur with Intramedullary Internal Fixation Device, Percutaneous Approach (ICD-10-PCS; principal; 2018-07-09 07:30)
DX: S72.141A Displaced intertrochanteric fracture of right femur, initial encounter for closed fracture (principal); D62 Acute posthemorrhagic anemia; S09.90XA Unspecified injury of head, initial encounter; E11.9 Type 2 diabetes mellitus without complications; G30.1 Alzheimer's disease with late onset; F02.80 Dementia in other diseases classified elsewhere, unspecified severity, without behavioral disturbance, psychotic disturbance, mood disturbance, and anxiety; F32.9 Major depressive disorder, single episode, unspecified; I10 Essential (primary) hypertension; I25.10 Atherosclerotic heart disease of native coronary artery without angina pectoris; E78.5 Hyperlipidemia, unspecified; M19.91 Primary osteoarthritis, unspecified site; I25.2 Old myocardial infarction; E66.9 Obesity, unspecified; Z68.35 Body mass index [BMI] 35.0-35.9, adult; Z79.84 Long term (current) use of oral hypoglycemic drugs; Z79.82 Long term (current) use of aspirin; Z79.899 Other long term (current) drug therapy; Z86.73 Personal history of transient ischemic attack (TIA), and cerebral infarction without residual deficits; Z95.0 Presence of cardiac pacemaker; Z96.653 Presence of artificial knee joint, bilateral; Z88.5 Allergy status to narcotic agent; Z88.0 Allergy status to penicillin; Z82.49 Family history of ischemic heart disease and other diseases of the circulatory system; W19.XXXA Unspecified fall, initial encounter; Y92.009 Unspecified place in unspecified non-institutional (private) residence as the place of occurrence of the external cause
CPT/HCPCS: 36415; 51702; 70450; 71045; 72125; 73501; 73502; 80053; 83036; 85025; 85610; 85730; 86850; 86900; 86901; 93005; 94760; 96361; 96374; 99285

== ENCOUNTER 2018-09-01 08:41 | Inpatient (IN) | payer MEDICARE ==
--- NOTE | 2018-09-01 09:46 | ED ---
General Adult HPI - General Chief complaint: Shortness of Breath Stated complaint: RASHEEDA Time Seen by Provider: 09/01/18 09:00 Source: patient, EMS, RN notes reviewed Mode of arrival: EMS Limitations: no limitations - History of Present Illness Initial comments: This is an 88-year-old female who presents emergency Department with a past medical history significant for bypass surgery and having had an DC in the past. Patient also states she has congestive heart failure. Patient woke up this morning about 5:00 with difficulty breathing. Patient was not having any chest pain or palpitations at the time. Patient called the ambulance when EMS was at the house she had much improved according to her and her granddaughter. Patient denies any recent fever chills or cough. Patient denies any increased leg swelling or calf tenderness. Patient denies abdominal pain patient denies nausea vomiting diarrhea. Patient denies headache patient denies numbness weakness. - Related Data Home Medications Medication Instructions Recorded Confirmed Atenolol [Tenormin] 25 mg PO DAILY 03/06/17 07/09/18 Cyanocobalamin [Vitamin B-12] 500 mcg PO DAILY 03/06/17 07/09/18 Donepezil [Aricept] 10 mg PO HS 03/06/17 07/09/18 Escitalopram [Lexapro] 20 mg PO DAILY 03/06/17 07/09/18 Furosemide [Lasix] 20 mg PO DAILY 03/06/17 07/09/18 Losartan Potassium [Cozaar] 100 mg PO DAILY 03/06/17 07/09/18 Multivitamins, Thera [Multivitamin 1 tab PO DAILY 03/06/17 07/09/18 (formulary)] sitaGLIPtin [Januvia] 100 mg PO DAILY 03/06/17 07/09/18 Previous Rx's Medication Instructions Recorded Atorvastatin [Lipitor] 80 mg PO HS #30 tab 03/11/17 Acetaminophen Tab [Tylenol Tab] 1 - 2 tab PO Q8H PRN #90 tablet 07/11/18 Rivaroxaban [Xarelto] 10 mg PO DAILY #30 tab 07/11/18 Sennosides [Senokot] 1 tab PO BID #60 tablet 07/11/18 traMADol HCl [Ultram] 1 - 2 tab PO Q6H PRN #56 tab 07/11/18 Ferrous Sulfate [Iron (65 MG 325 mg PO BID-W/MEALS tab 07/12/18 Elemental)] Insulin Aspart [NovoLOG 0 unit SQ ACHS vial 07/12/18 (formulary)] Allergies Allergy/AdvReac Type Severity Reaction Status Date / Time Penicillins Allergy Rash/Hives Verified 07/09/18 11:24 meperidine [From Demerol] AdvReac Hallucinati Verified 07/09/18 11:24 ons morphine AdvReac Hallucinati Verified 07/09/18 11:24 ons Review of Systems ROS Statement: Those systems with pertinent positive or pertinent negative responses have been documented in the HPI. ROS Other: All systems not noted in ROS Statement are negative. Past Medical History Past Medical History: Coronary Artery Disease (CAD), CVA/TIA, Diabetes Mellitus , Hyperlipidemia, Hypertension, Myocardial Infarction (DC), Osteoarthritis (OA) Additional Past Medical History / Comment(s): stroke February 2017-symptoms resolved other than uses a walker, one functioning kidney per daughter Last Myocardial Infarction Date:: 1984 History of Any Multi-Drug Resistant Organisms: None Reported Past Surgical History: Orthopedic Surgery, Pacemaker Additional Past Surgical History / Comment(s): shirin knees replaced Past Anesthesia/Blood Transfusion Reactions: No Reported Reaction Type of Cardiac Device: Permanent Pacemaker Device Placement Date:: 2001 Past Psychological History: Depression Smoking Status: Never smoker Past Alcohol Use History: None Reported Past Drug Use History: None Reported - Past Family History Father Family Medical History: Coronary Artery Disease (CAD) General Exam - General Exam Comments Initial Comments: GENERAL: Patient is well-developed and well-nourished. Patient is nontoxic and well- hydrated and is in mild distress. ENT: Neck is soft and supple. No significant lymphadenopathy is noted. Oropharynx is clear. Moist mucous membranes. Neck has full range of motion without eliciting any pain. EYES: The sclera were anicteric and conjunctiva were pink and moist. Extraocular movements were intact and pupils were equal round and reactive to light. Eyelids were unremarkable. PULMONARY: Unlabored respirations. Good breath sounds bilaterally. No audible rales rhonchi or wheezing was noted. CARDIOVASCULAR: There is a regular rate and rhythm without any murmurs gallops or rubs. ABDOMEN: Soft and nontender with normal bowel sounds. No palpable organomegaly was noted. There is no palpable pulsatile mass. SKIN: Skin is clear with no lesions or rashes and otherwise unremarkable. NEUROLOGIC: Patient is alert and oriented x3. Cranial nerves II through XII are grossly intact. Motor and sensory are also intact. Normal speech, volume and content. Symmetrical smile. MUSCULOSKELETAL: Normal extremities with adequate strength and full range of motion. No lower extremity swelling or edema. No calf tenderness. LYMPHATICS: No significant lymphadenopathy is noted PSYCHIATRIC: Normal psychiatric evaluation. Normal interpersonal interactions appears functionally intact in deals appropriately with others. No signs of depression. No signs of anxiety. Limitations: no limitations Course Vital Signs 09/01/18 09/01/18 09/01/18 08:59 09:54 11:35 Temperature 99.3 F Pulse Rate 62 59 L Respiratory 18 19 17 Rate Blood Pressure 194/83 194/83 189/92 O2 Sat by Pulse 94 L 91 L 96 Oximetry Medical Decision Making - Medical Decision Making EKG shows a paced rhythm at 64 bpm QRS is 138 QT interval 492 QTC is 507. Chest x-ray is consistent with ulnar edema. I gave the patient Lasix once again the x-ray. Patient's troponin was elevated at 1.5. Patient is not expressing any chest pain. I spoke with Dr. Rob he states he will come down and evaluate the patient. I spoke with Dr. Bolaños agreed to admit the patient admitted the patient I continue the Lasix and Nitropaste on the floor. I consult cardiology. - Lab Data Result diagrams: 09/01/18 10:00 09/01/18 10:00 Lab Results 09/01/18 09/01/18 09/01/18 Range/Units 10:00 10:00 10:00 WBC 17.5 H (3.8-10.6) k/uL RBC 4.61 (3.80-5.40) m/uL Hgb 12.8 (11.4-16.0) gm/dL Hct 39.0 (34.0-46.0) % MCV 84.6 D (80.0-100.0) fL MCH 27.8 (25.0-35.0) pg MCHC 32.8 (31.0-37.0) g/dL RDW 14.3 (11.5-15.5) % Plt Count 226 (150-450) k/uL Neutrophils % 92 % Lymphocytes % 4 % Monocytes % 3 % Eosinophils % 1 % Basophils % 0 % Neutrophils # 16.1 H (1.3-7.7) k/uL Lymphocytes # 0.6 L (1.0-4.8) k/uL Monocytes # 0.5 (0-1.0) k/uL Eosinophils # 0.2 (0-0.7) k/uL Basophils # 0.0 (0-0.2) k/uL PT (9.0-12.0) sec INR (<1.2) APTT (22.0-30.0) sec Sodium 140 (137-145) mmol/L Potassium 5.0 (3.5-5.1) mmol/L Chloride 104 (98-107) mmol/L Carbon Dioxide 28 (22-30) mmol/L Anion Gap 8 mmol/L BUN 32 H (7-17) mg/dL Creatinine 1.05 H (0.52-1.04) mg/dL Est GFR (CKD-EPI)AfAm 55 (>60 ml/min/1.73 sqM) Est GFR (CKD-EPI)NonAf 48 (>60 ml/min/1.73 sqM) Glucose 199 H (74-99) mg/dL Calcium 9.5 (8.4-10.2) mg/dL Magnesium 2.1 (1.6-2.3) mg/dL Total Bilirubin 0.6 (0.2-1.3) mg/dL AST 37 H (14-36) U/L ALT 29 (9-52) U/L Alkaline Phosphatase 101 (38-126) U/L Total Creatine Kinase 131 (30-135) U/L CK-MB (CK-2) 8.2 H (0.0-2.4) ng/mL CK-MB (CK-2) Rel Index 6.3 Troponin I 1.510 H* (0.000-0.034) ng/mL NT-Pro-B Natriuret Pep pg/mL Total Protein 6.6 (6.3-8.2) g/dL Albumin 3.7 (3.5-5.0) g/dL 09/01/18 09/01/18 Range/Units 10:00 10:00 WBC (3.8-10.6) k/uL RBC (3.80-5.40) m/uL Hgb (11.4-16.0) gm/dL Hct (34.0-46.0) % MCV (80.0-100.0) fL MCH (25.0-35.0) pg MCHC (31.0-37.0) g/dL RDW (11.5-15.5) % Plt Count (150-450) k/uL Neutrophils % % Lymphocytes % % Monocytes % % Eosinophils % % Basophils % % Neutrophils # (1.3-7.7) k/uL Lymphocytes # (1.0-4.8) k/uL Monocytes # (0-1.0) k/uL Eosinophils # (0-0.7) k/uL Basophils # (0-0.2) k/uL PT 10.9 (9.0-12.0) sec INR 1.1 (<1.2) APTT 23.6 (22.0-30.0) sec Sodium (137-145) mmol/L Potassium (3.5-5.1) mmol/L Chloride (98-107) mmol/L Carbon Dioxide (22-30) mmol/L Anion Gap mmol/L BUN (7-17) mg/dL Creatinine (0.52-1.04) mg/dL Est GFR (CKD-EPI)AfAm (>60 ml/min/1.73 sqM) Est GFR (CKD-EPI)NonAf (>60 ml/min/1.73 sqM) Glucose (74-99) mg/dL Calcium (8.4-10.2) mg/dL Magnesium (1.6-2.3) mg/dL Total Bilirubin (0.2-1.3) mg/dL AST (14-36) U/L ALT (9-52) U/L Alkaline Phosphatase (38-126) U/L Total Creatine Kinase (30-135) U/L CK-MB (CK-2) (0.0-2.4) ng/mL CK-MB (CK-2) Rel Index Troponin I (0.000-0.034) ng/mL NT-Pro-B Natriuret Pep 13258 pg/mL Total Protein (6.3-8.2) g/dL Albumin (3.5-5.0) g/dL Critical Care Time Critical Care Time: Yes Total Critical Care Time: 35 Disposition Clinical Impression: Non-STEMI (non-ST elevated myocardial infarction), Pulmonary edema Disposition: ADMITTED IP TO THIS HOSP Referrals: Cheko Junior MD [Primary Care Provider] - 1-2 days Time of Disposition: 12:10
[2018-09-01 10:15] LABS: Basophils % (A) 0 %; Eosinophils # (A) 0.2 k/uL (0-0.7); Eosinophils % (A) 1 %; HGB 12.8 gm/dL (11.4-16.0); Lymphocytes # (A) 0.6 k/uL (1.0-4.8); Lymphocytes % (A) 4 %; MCH 27.8 pg (25.0-35.0); MCHC 32.8 g/dL (31.0-37.0); Mean Platelet Volume 7.9; Monocytes # (A) 0.5 k/uL (0-1.0); Monocytes % (A) 3 %; Neutrophils # (A) 16.1 k/uL (1.3-7.7); Neutrophils % (A) 92 %; Platelet Count 226 k/uL (150-450); RBC 4.61 m/uL (3.80-5.40); RDW 14.3 % (11.5-15.5); WBC 17.5 k/uL (3.8-10.6)
--- NOTE | 2018-09-01 10:16 | XR ---
EXAMINATION TYPE: XR chest 2V DATE OF EXAM: 09/01/2018 COMPARISON: 07/09/2018 TECHNIQUE: PA and lateral views submitted. HISTORY: Difficulty breathing FINDINGS: Heart is enlarged and is postoperative change and cardiac device. Atherosclerotic change aorta. Diffu se interstitial pattern. Hypertrophic and degenerative change of the spine. IMPRESSION: 1. Diffuse interstitial pattern suggestive of interstitial venous congestion or pneumonitis. Correlat e clinically.
[2018-09-01 10:17] LABS: MCV 84.6 fL (80.0-100.0)
[2018-09-01 10:32] LABS: Albumin 3.7 g/dL (3.5-5.0); Calcium 9.5 mg/dL (8.4-10.2); INR 1.1 (<1.2); Magnesium 2.1 mg/dL (1.6-2.3); Partial Thromboplastin Time 23.6 sec (22.0-30.0); Prothrombin Time 10.9 sec (9.0-12.0); Total Bilirubin 0.6 mg/dL (0.2-1.3); Total Protein 6.6 g/dL (6.3-8.2)
[2018-09-01 11:08] LABS: Creatine Kinase MB 8.2 ng/mL (0.0-2.4)
[2018-09-01 11:13] LABS: Troponin I 1.51 ng/mL (0.000-0.034)
[2018-09-01] MEDS ORDERED: HEPARIN SODIUM,PORCINE 5,000 UNIT/ML 1 ML VIAL IV ONE ×2 (11:24→15:23)
[2018-09-01] MEDS ORDERED: HEPARIN SOD,PORK IN 0.45% NACL 25,000 UNIT in 0.45% NACL 1 500ML.BAG IV SCH (11:30)
[2018-09-01] MEDS ORDERED: FUROSEMIDE 10 MG/ML 10 ML VIAL IV STA (11:33)
[2018-09-01] MEDS ORDERED: ASPIRIN 325 MG TAB PO STA (12:11)
[2018-09-01] MEDS: NITROGLYCERIN OINT 1 INCH/GM PACKET TOPICAL SCH ×3 (12:38→20:06)
[2018-09-01] MEDS ORDERED: traMADol 50 MG TAB PO PRN (15:04)
[2018-09-01 15:20] VITALS: BMI 32.8
[2018-09-01] MEDS ORDERED: HEPARIN SODIUM,PORCINE 5,000 UNIT/ML 1 ML VIAL IV PRN (15:23)
[2018-09-01] MEDS: FERROUS SULFATE 325 MG TAB PO SCH (16:56)
[2018-09-01 17:23] LABS: Glucose,Whole Blood 206 mg/dL (75-99)
[2018-09-01] MEDS: HEPARIN SOD,PORK IN 0.45% NACL 25,000 UNIT in 0.45% NACL 1 500ML.BAG IV SCH (17:41)
[2018-09-01 17:44] LABS: Basophils % (A) 0 %; Eosinophils % (A) 0 %; HCT 35.8 % (34.0-46.0); HGB 11.5 gm/dL (11.4-16.0); Lymphocytes # (A) 1.3 k/uL (1.0-4.8); Lymphocytes % (A) 10 %; MCH 27.3 pg (25.0-35.0); MCHC 32.2 g/dL (31.0-37.0); MCV 84.5 fL (80.0-100.0); Mean Platelet Volume 8.8; Monocytes % (A) 8 %; Neutrophils # (A) 10.6 k/uL (1.3-7.7); Neutrophils % (A) 81 %; Platelet Count 210 k/uL (150-450); RBC 4.23 m/uL (3.80-5.40); RDW 14.2 % (11.5-15.5)
[2018-09-01] MEDS: INSULIN ASPART 100 UNIT/ML 1 ML 10 ML VIAL SQ SCH (17:44)
[2018-09-01 18:00] LABS: INR 1.2 (<1.2); Prothrombin Time 11.2 sec (9.0-12.0)
[2018-09-01] MEDS: DOCUSATE 100 MG CAP PO SCH (18:16)
[2018-09-01] MEDS: FUROSEMIDE 10 MG/ML 4 ML VIAL IV SCH (20:05)
[2018-09-01] MEDS: SENNOSIDES 8.6 MG TAB PO SCH (20:06)
[2018-09-01] MEDS: DONEPEZIL 10 MG TAB PO SCH (20:06)
[2018-09-01] MEDS: ATORVASTATIN 80 MG TAB PO SCH (20:06)
[2018-09-01 22:03] LABS: Glucose,Whole Blood 147 mg/dL (75-99)
[2018-09-02] MEDS: FUROSEMIDE 10 MG/ML 4 ML VIAL IV SCH ×3 (04:29→20:41)
[2018-09-02 06:07] LABS: Glucose,Whole Blood 151 mg/dL (75-99)
[2018-09-02] MEDS: FERROUS SULFATE 325 MG TAB PO SCH ×2 (06:18→17:53)
[2018-09-02] MEDS: INSULIN ASPART 100 UNIT/ML 1 ML 10 ML VIAL SQ SCH ×3 (06:18→17:47)
[2018-09-02] MEDS ORDERED: VANCOMYCIN IV PER PHARMACY 1 EACH MISC MISCELLANE PRN (06:31)
[2018-09-02] MEDS ORDERED: VANCOMYCIN 1,500 MG in SODIUM CHLORIDE 0.9% 250 ML IVPB STA (06:34)
[2018-09-02 07:15] LABS: Basophils % (A) 0 %; Eosinophils # (A) 0.1 k/uL (0-0.7); Eosinophils % (A) 1 %; HCT 36.9 % (34.0-46.0); Lymphocytes # (A) 1.7 k/uL (1.0-4.8); Lymphocytes % (A) 16 %; MCH 27.6 pg (25.0-35.0); MCHC 32.6 g/dL (31.0-37.0); MCV 84.6 fL (80.0-100.0); Mean Platelet Volume 9.2; Monocytes # (A) 0.8 k/uL (0-1.0); Monocytes % (A) 7 %; Neutrophils # (A) 7.6 k/uL (1.3-7.7); Neutrophils % (A) 74 %; Platelet Count 211 k/uL (150-450); RBC 4.36 m/uL (3.80-5.40); RDW 14.4 % (11.5-15.5); WBC 10.3 k/uL (3.8-10.6)
--- NOTE | 2018-09-02 08:22 | HP ---
HISTORY AND PHYSICAL DATE OF ADMISSION: 09/01/2018 DATE OF SERVICE: 09/01/2018 PRESENTING COMPLAINT: Short of breath. HISTORY OF PRESENTING COMPLAINT: A very pleasant 88-year-old patient of Dr. Junior. 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 The patient's daughter lives next door. The patient for a couple of days has been getting more and more short of breath, presented to the ER, found to be in congestive heart failure and troponin of 1.5. Given IV Lasix. Breathing is better. Patient using 1 pillow at night. Denied any chest pain. No perspiration. The patient is started on IV heparin and admitted with acute ND. REVIEW OF SYSTEMS: CONSTITUTIONAL: Tired. HEENT: Decreased hearing. RESPIRATORY: As above. CARDIOVASCULAR: No chest pain. GASTROINTESTINAL: None. GENITOURINARY: None. MUSCULOSKELETAL: Arthritic pain in joints. DERMATOLOGICAL: None. HEMATOLOGIC: None. LYMPHATIC: None. PSYCHIATRY: None. NEUROLOGICAL: None. Does use a walker. PAST MEDICAL HISTORY: Coronary artery disease with bypass, congestive heart failure, stroke, diabetes, hard of hearing, hyperlipidemia, hypertension, osteoarthritis, abdominal aortic aneurysm. Patient one nonfunctioning kidney, stroke with some right-sided weakness which resolved, but the patient uses a walker, intertrochanteric right femur fracture, right ear is deaf, hard of hearing in the left ear. PAST SURGICAL HISTORY: Orthopedic, pacemaker, IT nail fixation right hip on 07/09/2018, in 2001 had a 5-vessel bypass, bilateral knee replaced, biventricular AICD put in in June of this year and removal of ICD insertion of pacer generator only. PSYCH HISTORY: Depression. SOCIAL HISTORY: Patient was discharged from [facility] 2 days ago. Uses a walker. Daughter lives next door. No smoking. No alcohol. FAMILY HISTORY: Coronary artery disease. HOME MEDICATIONS: 1. Aspirin 81 mg a day. 2. Ultram 50 mg q.6 p.r.n. 3. Lasix 20 mg a day. 4. Cozaar 100 mg a day. 5. Iron 325 p.o. b.i.d. 6. Januvia 50 mg a day. 7. Senokot 1 tablet p.o. b.i.d. 8. Multivitamin 1 tablet p.o. daily. 9. Colace 100 mg p.o. daily. 10.Lexapro 20 mg p.o. daily. 11.Aricept 10 mg at bedtime. 12.Lipitor 80 mg at bedtime. 13.Tenormin 25 mg p.o. daily. 14.Tylenol 1 to 2 tablets q.8 p.r.n. ALLERGIES: Allergies to PENICILLIN, MEPERIDINE, MORPHINE. PHYSICAL EXAMINATION: On examination, vital signs on presentation: Temperature 99.3, pulse , blood pressure 194/83, pulse ox 94% on room air. GENERAL APPEARANCE: Well built, BMI 32.8. Sitting up, tired. EYES: Pupil equal. Conjunctivae normal. HENT: External appearance of nose and ears normal. Oral cavity normal. NECK: JVD raised. Mass not palpable. RESPIRATORY: Effort increased. LUNGS: Decreased breath sounds. CARDIOVASCULAR: First and second sounds normal. No edema. ABDOMEN: Soft, nontender. Liver and spleen not palpable. LYMPHATIC: No lymph node palpable of the neck or axillae. PSYCHIATRY: Patient is able to answer questions appropriately. MUSCULOSKELETAL: Evidence of osteoarthritis especially in the hands. INVESTIGATIONS: White count 17.5, hemoglobin 12.8. Potassium 5. BUN 32, creatinine 1.05. Troponin 1.5 and then 3.5. ProBNP 36,500. Chest x-ray film, personally reviewed by me, shows evidence of pulmonary edema. EKG shows a paced rhythm. ASSESSMENT: 1. Acute non-Q-wave myocardial infarction. The patient has known prior coronary artery bypass. 2. Coronary artery disease prior history of coronary artery bypass. 3. Acute congestive heart failure from ischemic cardiomyopathy, ejection fraction not known. 4. Diabetes mellitus type 2, chronically on oral hypoglycemic. 5. Hyperlipidemia. 6. Hypertensive urgency. 7. Primary osteoarthritis. 8. Abdominal aortic aneurysm. 9. Chronic gait dysfunction, uses a walker. 10.Hard of hearing. 11.Pacemaker generator in place. PLAN: Home medications are resumed. Cardiology was consulted from the ER. The patient is on IV heparin and IV Lasix. Care was discussed with the patient. Questions were answered. Follow with Cardiology. MMODL / IJN: [id number] /
--- NOTE | 2018-09-02 08:24 | P.CRDCN ---
History of Present Illness Consult date: 09/02/18 Requesting physician: Tee Bolaños Consult reason: congestive heart failure Chief complaint: shortness of breath History of present illness: this is an 88-year-old female who follows in the office with Dr. Ferrer. She has a known history of coronary artery disease with prior bypass surgery in 2001 at which time she underwent a ARROYO to the LAD, saphenous vein graft to the PDA, saphenous vein graft to the first diagonal, OM1, and circumflex. Patient also has history of hypertension, hyperlipidemia,diabetes and ischemic cardiomyopathy with prior placement of a bi-V AICD.she was brought to the hospital on this occasion with symptoms of shortness of breath. She denies any chest discomfort or palpitations.her EKG on arrival here showed a sensed V paced rhythm with underlying normal sinus rhythm, nonspecific ST-T wave changes.chest x-ray shows diffuse interstitial pattern suggestive of interstitial venous congestion or pneumonitis.White blood cell count 13 on admission, 10.3 this morning, sodium 140, potassium 5.0, BUN 32, creatinine 1.0.BNP level on admission 36,500.troponin 1.5, 3.5, 2.9.patient is currently on aspirin 325 mg daily, Tenormin 25 mg daily, Lipitor 80 mg daily, Lasix 40 IV every 8 hourly, IV heparin, losartan 100 mg daily,and Nitropaste.I pressure this morning 136/90 with a heart rate in the 70s, 97% on 2. At the time of my examination this morning, patient is very tired, she states that she did not sleep much through the night last night. She denies any chest discomfort and states that overall her breathing is stable. 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 Last Myocardial Infarction Date:: 1984 History of Any Multi-Drug Resistant Organisms: None Reported Past Surgical History: Orthopedic Surgery, Pacemaker Additional Past Surgical History / Comment(s): 07/09/18 IT nail fixation R hip, 2001 CABG 5 vessel, shirin knees replaced, biV AICD but in 07/04/18 had removal of ICD generator and insertion pacer generator only Past Anesthesia/Blood Transfusion Reactions: No Reported Reaction Type of Cardiac Device: Permanent Pacemaker Device Placement Date:: 2001 and 07/04/18 new pacer generator Past Psychological History: Depression Additional Psychological History / Comment(s): Pt discharged from [facility] 2 days ago. She had gone there post 06/2018 IT nailing of her R hip. She is ambulating with a walker. She has home care thru [facility]. Her daughter lives in a home attached to patients and manages pts medications and provides lunch and dinner. Pt recently placed on insulin scale and juanita is concerned that pt's glucometer is old. Smoking Status: Never smoker Past Alcohol Use History: None Reported Past Drug Use History: None Reported - Past Family History Father Family Medical History: Coronary Artery Disease (CAD) Additional Family Medical History / Comment(s): Father at the age of 82 or 83 yrs old. Mother Family Medical History: No Reported History Additional Family Medical History / Comment(s): Mother was healthy and lived to be 83 yrs old. Medications and Allergies Home Medications Medication Instructions Recorded Confirmed Type Atenolol [Tenormin] 25 mg PO DAILY 03/06/17 09/01/18 History Donepezil [Aricept] 10 mg PO HS 03/06/17 09/01/18 History Escitalopram [Lexapro] 20 mg PO DAILY 03/06/17 09/01/18 History Losartan Potassium [Cozaar] 100 mg PO DAILY 03/06/17 09/01/18 History Multivitamins, Thera [Multivitamin 1 tab PO DAILY 03/06/17 09/01/18 History (formulary)] Atorvastatin [Lipitor] 80 mg PO HS #30 tab 03/11/17 09/01/18 Rx Acetaminophen Tab [Tylenol Tab] 1 - 2 tab PO Q8H PRN #90 tablet 07/11/18 Rx Sennosides [Senokot] 1 tab PO BID #60 tablet 07/11/18 09/01/18 Rx Ferrous Sulfate [Iron (65 MG 325 mg PO BID-W/MEALS tab 07/12/18 09/01/18 Rx Elemental)] Aspirin 81 mg PO DAILY 09/01/18 09/01/18 History Docusate [Colace] 100 mg PO DAILY 09/01/18 09/01/18 History Furosemide [Lasix] 20 mg PO DAILY 09/01/18 09/01/18 History Insulin Aspart [NovoLOG See Protocol SQ ACHS 09/01/18 09/01/18 History (formulary)] sitaGLIPtin [Januvia] 50 mg PO DAILY 09/01/18 09/01/18 History traMADol HCl [Ultram] 50 mg PO Q6H PRN 09/01/18 09/01/18 History Allergies Allergy/AdvReac Type Severity Reaction Status Date / Time Penicillins Allergy Rash/Hives Verified 09/01/18 13:22 meperidine [From Demerol] AdvReac Hallucinati Verified 09/01/18 13:22 ons morphine AdvReac Hallucinati Verified 09/01/18 13:22 ons Physical Exam Vitals: Vital Signs Temp Pulse Pulse Pulse Resp BP BP 09/02/18 04:00 97.1 F L 71 18 136/93 09/02/18 00:00 97.3 F L 82 18 180/78 09/01/18 20:36 09/01/18 20:00 97.4 F L 79 20 148/67 09/01/18 16:00 83 17 09/01/18 15:30 98.2 F 83 17 173/88 09/01/18 13:45 98.0 F 80 24 154/80 09/01/18 12:40 78 41 H 189/82 09/01/18 12:30 72 24 189/82 09/01/18 12:20 76 35 H 09/01/18 12:10 71 46 H 189/82 09/01/18 12:00 62 24 189/82 09/01/18 11:50 66 23 189/82 09/01/18 11:40 71 24 189/82 09/01/18 11:35 59 L 17 189/92 09/01/18 11:30 66 22 194/83 09/01/18 11:20 66 12 194/83 09/01/18 11:10 60 35 H 194/83 09/01/18 11:00 64 32 H 194/83 09/01/18 10:50 78 20 194/83 09/01/18 10:40 71 27 H 19409/01/18 10:30 70 18 194/09/01/18 10:20 66 19 194/09/01/18 10:10 194/09/01/18 10:00 63 27 H 194/09/01/18 09:54 62 19 19409/01/18 09:50 25 H 19409/01/18 09:40 19409/01/18 09:30 19409/01/18 09:20 19409/01/18 09:10 19409/01/18 09:04 09/01/18 08:59 99.3 F 18 Pulse Ox 09/02/18 04:00 97 09/02/18 00:00 94 L 09/01/18 20:36 99 09/01/18 20:00 96 09/01/18 16:00 09/01/18 15:30 96 09/01/18 13:45 97 09/01/18 12:40 09/01/18 12:30 09/01/18 12:20 09/01/18 12:10 09/01/18 12:00 97 09/01/18 11:50 96 09/01/18 11:40 95 09/01/18 11:35 96 09/01/18 11:30 96 09/01/18 11:20 97 09/01/18 11:10 97 09/01/18 11:00 94 L 09/01/18 10:50 92 L 09/01/18 10:40 94 L 09/01/18 10:30 94 L 09/01/18 10:20 94 L 09/01/18 10:10 09/01/18 10:00 94 L 09/01/18 09:54 91 L 09/01/18 09:50 95 09/01/18 09:40 94 L 09/01/18 09:30 94 L 09/01/18 09:20 93 L 09/01/18 09:10 94 L 09/01/18 09:04 95 09/01/18 08:59 94 L Intake and Output 09/01/18 09/02/18 09/02/18 22:59 06:59 14:59 Intake Total 240 Output Total 500 Balance 240 -500 Intake: Oral 240 Output: Urine 500 Other: Voiding Method Toilet Toilet Bedside Commode Bedside Commode # Voids 2 1 Weight 83.915 kg 83.6 kg PHYSICAL EXAMINATION: GENERAL:this 88-year-old female in no acute distress at the time of my examination HEENT: Head is atraumatic, normocephalic. Pupils equal, round. Sclera anicteric. Conjunctiva are clear. Mucous membranes of the mouth are moist. Neck is supple. There is no elevated jugular venous pressure.no carotid bruit is heard. HEART EXAMINATION: [Heart S1, S2 systolic murmur is heard.] CHEST EXAMINATION:[ Lungs are clear with mild diminished air entry to the bases. ] ABDOMEN: [ Soft, nontender. Bowel sounds are heard. No organomegaly noted]. EXTREMITIES:[ 2+ peripheral pulses with trace evidence of peripheral edema and no calf tenderness noted]. NEUROLOGIC [patient is awake, alert and oriented X3.] . Results 09/02/18 06:13 09/01/18 10:00 Cardiac Enzymes 09/01/18 09/01/18 09/01/18 Range/Units 10:00 10:00 16:00 AST 37 H (14-36) U/L CK-MB (CK-2) 8.2 H (0.0-2.4) ng/mL Troponin I 1.510 H* 3.550 H* (0.000-0.034) ng/mL 09/01/18 Range/Units 22:03 AST (14-36) U/L CK-MB (CK-2) (0.0-2.4) ng/mL Troponin I 2.940 H* (0.000-0.034) ng/mL Coagulation 09/01/18 09/01/18 09/01/18 Range/Units 10:00 16:54 23:48 PT 10.9 11.2 (9.0-12.0) sec APTT 23.6 26.0 50.4 H (22.0-30.0) sec CBC 09/01/18 09/01/18 09/02/18 Range/Units 10:00 16:54 06:13 WBC 17.5 H 13.0 H 10.3 (3.8-10.6) k/uL RBC 4.61 4.23 4.36 (3.80-5.40) m/uL Hgb 12.8 11.5 12.0 (11.4-16.0) gm/dL Hct 39.0 35.8 36.9 (34.0-46.0) % Plt Count 226 210 211 (150-450) k/uL Comprehensive Metabolic Panel 09/01/18 Range/Units 10:00 Sodium 140 (137-145) mmol/L Potassium 5.0 (3.5-5.1) mmol/L Chloride 104 (98-107) mmol/L Carbon Dioxide 28 (22-30) mmol/L BUN 32 H (7-17) mg/dL Creatinine 1.05 H (0.52-1.04) mg/dL Glucose 199 H (74-99) mg/dL Calcium 9.5 (8.4-10.2) mg/dL AST 37 H (14-36) U/L ALT 29 (9-52) U/L Alkaline Phosphatase 101 (38-126) U/L Total Protein 6.6 (6.3-8.2) g/dL Albumin 3.7 (3.5-5.0) g/dL Current Medications Generic Name Dose Route Start Last Admin Trade Name Sammyq PRN Reason Stop Dose Admin Aspirin 325 mg 09/02/18 09:00 Aspirin PO DAILY [facility] Atenolol 25 mg 09/02/18 09:00 Tenormin PO DAILY [facility] Atorvastatin Calcium 80 mg 09/01/18 21:00 09/01/18 20:06 Lipitor PO 80 mg HS [facility] Administration Docusate Sodium 100 mg 09/01/18 15:15 09/01/18 18:16 Colace PO Not Given DAILY [facility] Donepezil HCl 10 mg 09/01/18 21:00 09/01/18 20:06 Aricept PO 10 mg HS [facility] Administration Escitalopram Oxalate 20 mg 09/02/18 09:00 Lexapro PO DAILY [facility] Ferrous Sulfate 325 mg 09/01/18 17:30 09/02/18 06:18 Feosol PO 325 mg BID-W/MEALS [facility] Administration Furosemide 40 mg 09/01/18 20:00 09/02/18 04:29 Lasix IV 40 mg Q8H [facility] Administration Heparin Sodium (Porcine) 0 unit 09/01/18 15:23 Heparin IV PER PROTOCOL PRN Low PTT Protocol Heparin Sodium/Sodium Chloride 500 mls @ 20 mls/hr 09/01/18 16:00 09/01/18 17 :41 25,000 unit/ Sodium Chloride IV 11.917 units/kg/hr .Q24H [facility] 20 mls/hr Administration Protocol 11.917 UNITS/KG/HR Vancomycin HCl 1,500 mg/ 250 mls @ 125 mls/hr 09/02/18 06:34 Sodium Chloride IVPB 09/02/18 08:33 ONCE STA Vancomycin HCl 1,500 mg/ 250 mls @ 125 mls/hr 09/04/18 07:30 Sodium Chloride IVPB Q48H [facility] Insulin Aspart 0 unit 09/01/18 17:30 09/02/18 06:18 Novolog SQ 2 unit AC-TID [facility] Administration Protocol Linagliptin 5 mg 09/02/18 09:00 Tradjenta PO DAILY [facility] Losartan Potassium 100 mg 09/02/18 09:00 Cozaar PO DAILY [facility] Multivitamins 1 each 09/02/18 09:00 Theragran PO DAILY [facility] Nitroglycerin 1 inch 09/01/18 13:00 09/01/18 20:06 Nitro-Bid Oint TOPICAL 1 inch QID [facility] Administration Senna 8.6 mg 09/01/18 21:00 09/01/18 20:06 Senokot PO 8.6 mg BID [facility] Administration Tramadol HCl 50 mg 09/01/18 15:04 Ultram PO Q6H PRN Pain Intake and Output 09/01/18 09/02/18 09/02/18 22:59 06:59 14:59 Intake Total 240 Output Total 500 Balance 240 -500 Intake: Oral 240 Output: Urine 500 Other: Voiding Method Toilet Toilet Bedside Commode Bedside Commode # Voids 2 1 Weight 83.915 kg 83.6 kg 09/02/18 06:13 09/01/18 10:00 EKG Interpretations (text) EKG shows a paced rhythm with underlying sinus rhythm nonspecific ST-T wave changes Assessment and Plan Plan: Assessment and plan #1 systolic congestive heart failure acute on chronic #2 abnormality in troponin suggesting acute coronary syndrome. #3known history of coronary artery disease with prior bypass surgery in 1999 #4 hypertension #5 diabetes #6 hyperlipidemia #7 ischemic cardiomyopathy with prior by V AICD implantation Plan We will obtain a repeat echocardiogram with Doppler study. Continue current medications including IV Lasix and IV heparin.Continue to monitor intake and output along with daily weights and daily lytes BUN and creatinine. Once the patient's heart failurehas improved, we will need to discuss with the patient proceeding with cardiac catheterization or continuing maximal medical therapy. Further recommendations to follow. DNP note has been reviewed, I agree with a documented findings and plan of care. Patient was seen and examined.
--- NOTE | 2018-09-02 10:18 | ECHOF ---
Referral Reason:sob MEASUREMENTS -------- HEIGHT: 160.0 cm WEIGHT: 83.5 kg BP: 136/93 RVIDd: 2.6 cm (< 3.3) IVSd: 1.2 cm (0.6 - 1.1) LVIDd: 5.6 cm (3.9 - 5.3) LVPWd: 1.3 cm (0.6 - 1.1) IVSs: 1.8 cm LVIDs: 4.4 cm LVPWs: 1.9 cm LA Diam: 3.5 cm (2.7 - 3.8) LAESV Index (A-L): 38.32 ml/m Ao Diam: 3.1 cm (2.0 - 3.7) AV Cusp: 1.4 cm (1.5 - 2.6) EPSS: 0.9 cm MV E Jayesh: 0.96 m/s MV DecT: 270 ms MV A Jayesh: 0.34 m/s MV E/A Ratio: 2.79 RAP: 5.00 mmHg RVSP: 24.16 mmHg MV EF SLOPE: 22.02 mm/s (70 - 150) MV EXCURSION: 0.69 cm (> 18.000) FINDINGS -------- A-V paced rhythm. This was a technically adequate study. The left ventricle is mildly dilated. There is mild concentric left ventricular hypertrophy. Over all left ventricular systolic function is moderately impaired with, an EF between 35 - 40 %. The right ventricle is normal in size. LA is moderately dilated 34-39 ml/m2 The right atrium is normal in size. There is mild aortic valve sclerosis. The mitral valve leaflets are mildly thickened. Moderate mitral annular calcification present. Mo ejntlv-vu-axkklo mitral regurgitation is present. Mild tricuspid regurgitation present. Right ventricular systolic pressure is normal at < 35 mmHg. The pulmonic valve was not well visualized. The aortic root size is normal. Normal inferior vena cava with normal inspiratory collapse consistent with estimated right atrial pre ssure of 5 mmHg. There is no pericardial effusion. CONCLUSIONS -------- 1. A-V paced rhythm. 2. This was a technically adequate study. 3. The left ventricle is mildly dilated. 4. There is mild concentric left ventricular hypertrophy. 5. Overall left ventricular systolic function is moderately impaired with, an EF between 35 - 40 %. 6. The right ventricle is normal in size. 7. LA is moderately dilated 34-39 ml/m2 8. The right atrium is normal in size. 9. There is mild aortic valve sclerosis. 10. The mitral valve leaflets are mildly thickened. 11. Moderate mitral annular calcification present. 12. Cmtlarkp-pp-mxntjd mitral regurgitation is present. 13. Mild tricuspid regurgitation present. 14. Right ventricular systolic pressure is normal at < 35 mmHg. 15. The pulmonic valve was not well visualized. 16. The aortic root size is normal. 17. Normal inferior vena cava with normal inspiratory collapse consistent with estimated right atrial pressure of 5 mmHg. 18. There is no pericardial effusion. ORDER CHECKER: HUY Kelley
[2018-09-02] MEDS: ASPIRIN 325 MG TAB PO SCH (10:44)
[2018-09-02] MEDS: DOCUSATE 100 MG CAP PO SCH (10:44)
[2018-09-02] MEDS: LOSARTAN 50 MG TAB PO SCH ×2 (10:44→10:45)
[2018-09-02] MEDS: LINAGLIPTIN 5 MG TABLET PO SCH (10:44)
[2018-09-02] MEDS: SENNOSIDES 8.6 MG TAB PO SCH ×2 (10:45→20:42)
[2018-09-02] MEDS: MULTIVITAMINS, THERA 1 EACH TAB PO SCH (10:45)
[2018-09-02] MEDS: NITROGLYCERIN OINT 1 INCH/GM PACKET TOPICAL SCH ×4 (10:45→22:22)
[2018-09-02] MEDS: ATENOLOL 25 MG TAB PO SCH (10:45)
[2018-09-02] MEDS: ESCITALOPRAM 20 MG TAB PO SCH (10:45)
[2018-09-02 10:49] LABS: Calcium 9.1 mg/dL (8.4-10.2); Potassium 3.9 mmol/L (3.5-5.1)
[2018-09-02 11:18] LABS: Glucose,Whole Blood 119 mg/dL (75-99)
[2018-09-02 16:44] LABS: Glucose,Whole Blood 150 mg/dL (75-99)
[2018-09-02] MEDS: HEPARIN SOD,PORK IN 0.45% NACL 25,000 UNIT in 0.45% NACL 1 500ML.BAG IV SCH (18:05)
[2018-09-02] MEDS: DONEPEZIL 10 MG TAB PO SCH (20:42)
[2018-09-02] MEDS: ATORVASTATIN 80 MG TAB PO SCH (20:42)
[2018-09-02 20:55] LABS: Glucose,Whole Blood 110 mg/dL (75-99)
--- NOTE | 2018-09-02 23:10 | PN ---
PROGRESS NOTE DATE OF SERVICE: 09/02/2018. PRESENTING COMPLAINT: Short of breath. INTERVAL HISTORY: This patient presented with acute non-Q-wave ND and CHF exacerbation. Patient is a bit tired, on IV heparin and IV Lasix. No immediate intervention per Cardiology. The patient does feel a bit tired. REVIEW OF SYSTEMS: Done for constitutional, cardiovascular, GI, pulmonary; relevant findings as above. CURRENT MEDICATIONS: Reviewed. They include: 1. IV Lasix 40 mg q.8. 2. IV heparin. 3. IV vancomycin. PHYSICAL EXAMINATION: Afebrile, pulse 72, respiration 18, blood pressure 144/94, pulse ox 97% on 2 L. GENERAL APPEARANCE: Sitting up. Tired. EYES: Pupils equal. Conjunctivae normal. HEENT: External appearance of nose and ears normal. Oral cavity normal. NECK: JVD raised. Mass not palpable. RESPIRATORY: Effort increased. LUNGS: Decreased breath sounds. CARDIOVASCULAR: First and second sounds normal. No edema. ABDOMEN: Soft, non-tender. Liver and spleen not palpable. PSYCHIATRY: Awake. Able to answer simple questions. INVESTIGATIONS: Accu-Cheks are noted. White count 10.3, BUN 39, creatinine 1.39. ASSESSMENT: 1. Acute non-Q-wave myocardial infarction. Patient has known prior coronary artery bypass. 2. Coronary artery disease with prior history of coronary artery bypass. 3. Acute congestive heart failure from ischemic cardiomyopathy, ejection fraction 30% to 35%. 4. Diabetes mellitus, type 2, chronically on oral hypoglycemic. 5. Hyperlipidemia. 6. Hypertensive urgency on presentation. 7. Primary osteoarthritis. 8. Abdominal aortic aneurysm. 9. Chronic gait dysfunction. Uses a walker. 10.Hard of hearing. 11.Pacemaker generator in place. 12.IV heparin monitoring. 13.Acute congestive heart failure, slow to respond. 14.Blood cultures positive for gram-positive cocci; suspect contamination, as patient has been afebrile with no obvious symptoms of infection. PLAN: Will keep a close eye on patient's renal function and check electrolytes in the morning. Care was discussed with the patient. Patient's other medications are to continue. Currently vancomycin was added. MMODL / IJN: [id number] /
[2018-09-03] MEDS: FUROSEMIDE 10 MG/ML 4 ML VIAL IV SCH ×2 (05:05→12:26)
[2018-09-03 06:20] LABS: Glucose,Whole Blood 103 mg/dL (75-99)
[2018-09-03] MEDS: INSULIN ASPART 100 UNIT/ML 1 ML 10 ML VIAL SQ SCH ×3 (06:35→17:35)
[2018-09-03] MEDS: FERROUS SULFATE 325 MG TAB PO SCH ×2 (06:38→17:36)
[2018-09-03 06:57] LABS: Basophils # (A) 0.1 k/uL (0-0.2); Basophils % (A) 1 %; Eosinophils # (A) 0.2 k/uL (0-0.7); Eosinophils % (A) 2 %; HCT 35.6 % (34.0-46.0); HGB 11.2 gm/dL (11.4-16.0); Lymphocytes # (A) 1.6 k/uL (1.0-4.8); Lymphocytes % (A) 16 %; MCH 26.8 pg (25.0-35.0); MCHC 31.5 g/dL (31.0-37.0); MCV 85.2 fL (80.0-100.0); Mean Platelet Volume 8.3; Monocytes # (A) 0.6 k/uL (0-1.0); Monocytes % (A) 6 %; Neutrophils # (A) 7.6 k/uL (1.3-7.7); Neutrophils % (A) 74 %; Platelet Count 192 k/uL (150-450); RBC 4.18 m/uL (3.80-5.40); RDW 14.3 % (11.5-15.5); WBC 10.2 k/uL (3.8-10.6)
[2018-09-03 07:18] LABS: Calcium 8.7 mg/dL (8.4-10.2); Potassium 3.4 mmol/L (3.5-5.1)
[2018-09-03] MEDS: ASPIRIN 325 MG TAB PO SCH (08:52)
[2018-09-03] MEDS: LINAGLIPTIN 5 MG TABLET PO SCH (08:52)
[2018-09-03] MEDS: NITROGLYCERIN OINT 1 INCH/GM PACKET TOPICAL SCH ×2 (08:52→12:24)
[2018-09-03] MEDS: ATENOLOL 25 MG TAB PO SCH (08:53)
[2018-09-03] MEDS: ESCITALOPRAM 20 MG TAB PO SCH (08:53)
[2018-09-03] MEDS: DOCUSATE 100 MG CAP PO SCH (08:53)
[2018-09-03] MEDS: SENNOSIDES 8.6 MG TAB PO SCH ×2 (08:54→20:40)
[2018-09-03] MEDS: MULTIVITAMINS, THERA 1 EACH TAB PO SCH (08:54)
[2018-09-03] MEDS ORDERED: VANCOMYCIN 1,500 MG in SODIUM CHLORIDE 0.9% 250 ML IVPB SCH (09:00)
[2018-09-03 11:33] LABS: Glucose,Whole Blood 205 mg/dL (75-99)
[2018-09-03] MEDS ORDERED: LOSARTAN 50 MG TAB PO STA (11:43)
--- NOTE | 2018-09-03 12:41 | P.PN ---
Subjective Progress Note Date: 09/03/18 This is an 88-year-old female who follows in the office with Dr. Espinosa. She has a known history of coronary artery disease with prior bypass surgery in 2001 at which time she underwent a ARROYO to the LAD, saphenous vein graft to the PDA, saphenous vein graft to the first diagonal, OM1, and circumflex. Patient also has history of hypertension, hyperlipidemia,diabetes and ischemic cardiomyopathy with prior placement of a bi-V AICD.she was brought to the hospital on this occasion with symptoms of shortness of breath. She denies any chest discomfort or palpitations.her EKG on arrival here showed a sensed V paced rhythm with underlying normal sinus rhythm, nonspecific ST-T wave changes.chest x-ray shows diffuse interstitial pattern suggestive of interstitial venous congestion or pneumonitis.White blood cell count 13 on admission, 10.3 this morning, sodium 140, potassium 5.0, BUN 32, creatinine 1.0.BNP level on admission 36,500.troponin 1.5, 3.5, 2.9.patient is currently on aspirin 325 mg daily, Tenormin 25 mg daily, Lipitor 80 mg daily, Lasix 40 IV every 8 hourly, IV heparin, losartan 100 mg daily,and Nitropaste.I pressure this morning 136/90 with a heart rate in the 70s, 97% on 2. At the time of my examination this morning, patient is very tired, she states that she did not sleep much through the night last night. She denies any chest discomfort and states that overall her breathing is stable. 09/03/2018 Patient was seen and examined this morning, breathing is improved. Continues to be on IV Lasix at this time. White blood cell count 10.2, hemoglobin 11.2, platelet count 192. Sodium 137, potassium 3.4, BUN 45, creatinine 1.3. Weight was essentially unchanged. He is currently on a full aspirin daily, we'll decrease this to 81 mg daily, discontinue the Nitropaste. Her blood pressure this morning is 178/83. We will discontinue the atenolol and start the patient on Coreg. Replace potassium. Discontinue IV heparin. White blood cell count 10.2, hemoglobin 11.2, platelet count 192. Sodium 137, potassium 3.4, BUN 45, creatinine 1.3. Objective - Vital Signs Vital signs: Vital Signs Temp 98.0 F 09/03/18 08:00 Pulse 60 09/03/18 08:00 Resp 16 09/03/18 08:00 BP 179/83 09/03/18 08:00 Pulse Ox 96 09/03/18 04:00 Intake & Output 09/02/18 09/03/18 09/03/18 18:59 06:59 18:59 Intake Total 968 41 Output Total 600 600 Balance 368 -559 Weight 83.2 kg Intake: Intake, IV Titration 488 41 Amount Heparin Sod,Pork in 0.45% 488 41 NaCl 25,000 unit In 0.45 % NaCl 1 500ml.bag @ 11. 917 UNITS/KG/HR 20 mls/hr IV .Q24H [facility] Rx#: [id number] Oral 480 Output: Urine 600 600 Other: Voiding Method Toilet Toilet Bedside Commode Bedside Commode # Voids 1 - Exam PHYSICAL EXAMINATION: GENERAL:this 88-year-old female in no acute distress at the time of my examination HEENT: Head is atraumatic, normocephalic. Pupils equal, round. Sclera anicteric. Conjunctiva are clear. Mucous membranes of the mouth are moist. Neck is supple. There is no elevated jugular venous pressure.no carotid bruit is heard. HEART EXAMINATION: [Heart S1, S2 systolic murmur is heard. CHEST EXAMINATION:[ Lungs are clear to auscultation . ABDOMEN: [ Soft, nontender. Bowel sounds are heard. No organomegaly noted. EXTREMITIES:[ 2+ peripheral pulses with no evidence of peripheral edema and no calf tenderness noted. NEUROLOGIC [patient is awake, alert and oriented X3. - Labs CBC & Chem 7: 09/03/18 06:39 09/03/18 06:39 Labs: Abnormal Lab Results - Last 24 Hours (Table) 09/02/18 09/02/18 09/02/18 Range/Units 16:37 19:19 20:53 Hgb (11.4-16.0) gm/dL APTT 55.1 H (22.0-30.0) sec Potassium (3.5-5.1) mmol/L BUN (7-17) mg/dL Creatinine (0.52-1.04) mg/dL Glucose (74-99) mg/dL POC Glucose (mg/dL) 150 H 110 H (75-99) mg/dL 09/03/18 09/03/18 09/03/18 Range/Units 06:19 06:39 06:39 Hgb 11.2 L (11.4-16.0) gm/dL APTT (22.0-30.0) sec Potassium 3.4 L (3.5-5.1) mmol/L BUN 45 H (7-17) mg/dL Creatinine 1.30 H (0.52-1.04) mg/dL Glucose 107 H (74-99) mg/dL POC Glucose (mg/dL) 103 H (75-99) mg/dL 09/03/18 09/03/18 Range/Units 06:39 11:23 Hgb (11.4-16.0) gm/dL APTT 62.5 H (22.0-30.0) sec Potassium (3.5-5.1) mmol/L BUN (7-17) mg/dL Creatinine (0.52-1.04) mg/dL Glucose (74-99) mg/dL POC Glucose (mg/dL) 205 H (75-99) mg/dL Microbiology - Last 24 Hours (Table) 09/01/18 10:00 Blood Culture Gram Stain - Preliminary Blood Blood Culture - Preliminary Coagulase Negative Staph Assessment and Plan Plan: Assessment and plan #1 systolic congestive heart failure acute on chronic #2 abnormality in troponin suggesting acute coronary syndrome. #3known history of coronary artery disease with prior bypass surgery in 1999 #4 hypertension #5 diabetes #6 hyperlipidemia #7 ischemic cardiomyopathy with prior by V AICD implantation Plan Echocardiogram with Doppler study revealed an ejection fraction of 30%. We will discontinue the atenolol and start the patient on Coreg for more optimal blood pressure control. Replace potassium. We will also discontinue the IV Lasix and change room attendant to oral diuretics today. Decrease aspirin to 81 mg daily , and discontinue IV heparin. DNP note has been reviewed, I agree with a documented findings and plan of care. Patient was seen and examined.
[2018-09-03 16:56] LABS: Glucose,Whole Blood 152 mg/dL (75-99)
[2018-09-03] MEDS: CARVEDILOL 6.25 MG TAB PO SCH (17:40)
[2018-09-03] MEDS: ATORVASTATIN 80 MG TAB PO SCH (20:39)
[2018-09-03] MEDS: DONEPEZIL 10 MG TAB PO SCH (20:39)
[2018-09-03 20:55] LABS: Glucose,Whole Blood 205 mg/dL (75-99)
--- NOTE | 2018-09-03 21:05 | PN ---
PROGRESS NOTE DATE OF SERVICE: 09/03/18 PRESENTING COMPLAINT: Short of breath. INTERVAL HISTORY: The patient presented with acute non-Q-wave myocardial infarction with congestive heart failure exacerbation. Feeling a bit better. Breathing is improved this morning. Lasix was switched from IV to p.o. The patient feels a bit better. Did tolerate a diet. No chest pain. REVIEW OF SYSTEMS: Done for constitutional, cardiovascular, GI, pulmonary; relevant findings as above. CURRENT MEDICATIONS: Reviewed that include aspirin, Lipitor, Coreg 6.25 p.o. b.i.d., p.o. Lasix, IV vancomycin. EXAMINATION: Afebrile, pulse 60, respirations 16, blood pressure 145/68, pulse ox 96% on room air. GENERAL APPEARANCE: Sitting up looking better. EYES: Pupils equal. Conjunctivae normal. Oral cavity normal. HEENT: External appearance of nose and ears normal. NECK: JVD not raised. Mass not palpable. RESPIRATORY: Effort increased. LUNGS: Diminished breath sounds. CARDIOVASCULAR: First and second sounds, no edema. ABDOMEN: Soft, nontender. Liver and spleen not palpable. PSYCHIATRY: Awake, answering simple questions. INVESTIGATIONS: White count 10.2, potassium 3.4, BUN 45, creatinine 1.30. Blood cultures showing coag- negative Staph. ASSESSMENT: 1. Acute non-Q-wave myocardial infarction. The patient has known prior coronary artery bypass. 2. Coronary artery disease prior history of coronary artery bypass. 3. Acute congestive heart failure exacerbation from ischemic cardiomyopathy, EF 30-35 percent with clinical response. 4. Diabetes mellitus type 2, chronically on oral hypoglycemic. 5. Hyperlipidemia. 6. Hypertensive urgency on presentation. 7. Primary osteoarthritis. 8. Abdominal aortic aneurysm. 9. Chronic gait dysfunction uses a walker. 10.Hard of hearing. 11.Pacemaker generator in place. 12.Blood cultures now showing what is now confirmed to be contamination. PLAN: Continue current medication and treatment plan. Encourage patient to be out of bed. Will DC patient's vancomycin. MMODL / IJN: [id number] /
[2018-09-04 05:43] LABS: Glucose,Whole Blood 119 mg/dL (75-99)
[2018-09-04 06:26] LABS: Basophils % (A) 0 %; Eosinophils # (A) 0.2 k/uL (0-0.7); Eosinophils % (A) 2 %; HCT 35.1 % (34.0-46.0); HGB 11.5 gm/dL (11.4-16.0); Lymphocytes # (A) 1.4 k/uL (1.0-4.8); Lymphocytes % (A) 15 %; MCHC 32.9 g/dL (31.0-37.0); Mean Platelet Volume 8.1; Monocytes # (A) 0.6 k/uL (0-1.0); Monocytes % (A) 6 %; Neutrophils % (A) 76 %; Platelet Count 201 k/uL (150-450); RBC 4.13 m/uL (3.80-5.40); RDW 14.1 % (11.5-15.5); WBC 9.3 k/uL (3.8-10.6)
[2018-09-04 06:36] LABS: Calcium 8.6 mg/dL (8.4-10.2); Potassium 3.4 mmol/L (3.5-5.1)
[2018-09-04] MEDS: INSULIN ASPART 100 UNIT/ML 1 ML 10 ML VIAL SQ SCH ×2 (07:03→12:42)
[2018-09-04] MEDS: CARVEDILOL 6.25 MG TAB PO SCH ×2 (07:04→16:15)
[2018-09-04] MEDS: FERROUS SULFATE 325 MG TAB PO SCH ×2 (07:04→16:17)
[2018-09-04] MEDS ORDERED: ASPIRIN 81 MG PO SCH (09:00)
[2018-09-04] MEDS ORDERED: FUROSEMIDE 40 MG TAB PO SCH (09:00)
[2018-09-04] MEDS: MULTIVITAMINS, THERA 1 EACH TAB PO SCH (09:57)
[2018-09-04] MEDS: LINAGLIPTIN 5 MG TABLET PO SCH (09:57)
[2018-09-04] MEDS: LOSARTAN 50 MG TAB PO SCH (09:57)
[2018-09-04] MEDS: SENNOSIDES 8.6 MG TAB PO SCH (09:57)
[2018-09-04] MEDS: DOCUSATE 100 MG CAP PO SCH (09:57)
[2018-09-04] MEDS: ESCITALOPRAM 20 MG TAB PO SCH (09:57)
[2018-09-04 12:03] LABS: Glucose,Whole Blood 165 mg/dL (75-99)
--- NOTE | 2018-09-04 12:04 | P.PN ---
Subjective Progress Note Date: 09/04/18 This is an 88-year-old female who follows in the office with Dr. Espinosa. She has a known history of coronary artery disease with prior bypass surgery in 2001 at which time she underwent a ARROYO to the LAD, saphenous vein graft to the PDA, saphenous vein graft to the first diagonal, OM1, and circumflex. Patient also has history of hypertension, hyperlipidemia,diabetes and ischemic cardiomyopathy with prior placement of a bi-V AICD.she was brought to the hospital on this occasion with symptoms of shortness of breath. She denies any chest discomfort or palpitations.her EKG on arrival here showed a sensed V paced rhythm with underlying normal sinus rhythm, nonspecific ST-T wave changes.chest x-ray shows diffuse interstitial pattern suggestive of interstitial venous congestion or pneumonitis.White blood cell count 13 on admission, 10.3 this morning, sodium 140, potassium 5.0, BUN 32, creatinine 1.0.BNP level on admission 36,500.troponin 1.5, 3.5, 2.9.patient is currently on aspirin 325 mg daily, Tenormin 25 mg daily, Lipitor 80 mg daily, Lasix 40 IV every 8 hourly, IV heparin, losartan 100 mg daily,and Nitropaste.I pressure this morning 136/90 with a heart rate in the 70s, 97% on 2. At the time of my examination this morning, patient is very tired, she states that she did not sleep much through the night last night. She denies any chest discomfort and states that overall her breathing is stable. 09/03/2018 Patient was seen and examined this morning, breathing is improved. Continues to be on IV Lasix at this time. White blood cell count 10.2, hemoglobin 11.2, platelet count 192. Sodium 137, potassium 3.4, BUN 45, creatinine 1.3. Weight was essentially unchanged. He is currently on a full aspirin daily, we'll decrease this to 81 mg daily, discontinue the Nitropaste. Her blood pressure this morning is 178/83. We will discontinue the atenolol and start the patient on Coreg. Replace potassium. Discontinue IV heparin. White blood cell count 10.2, hemoglobin 11.2, platelet count 192. Sodium 137, potassium 3.4, BUN 45, creatinine 1.3. 09/04/2018 Patient was seen and examined this morning, sitting up in chair bedside. Feels well, no complaints. Currently on oral diuretics. Weight is down today 1 kg. Blood pressure 132/70 with a heart rate in the 60s, 97% on room air. White blood cell count 9.3, hemoglobin 11.5, platelet count 201. Sodium 139, potassium 3.4, BUN 40, creatinine 1.1. Objective - Vital Signs Vital signs: Vital Signs Temp 98.0 F 09/04/18 04:00 Pulse 64 09/04/18 04:00 Resp 18 09/04/18 04:00 BP 145/72 09/04/18 04:00 Pulse Ox 97 09/04/18 04:00 Intake & Output 09/03/18 09/04/18 09/04/18 18:59 06:59 18:59 Intake Total 720 240 Output Total 100 Balance 720 -100 240 Weight 82.9 kg Intake: Oral 720 240 Output: Urine 100 Other: Voiding Method Toilet Toilet # Voids 3 1 2 # Bowel Movements 1 - Exam PHYSICAL EXAMINATION: GENERAL:this 88-year-old female in no acute distress at the time of my examination HEENT: Head is atraumatic, normocephalic. Pupils equal, round. Sclera anicteric. Conjunctiva are clear. Mucous membranes of the mouth are moist. Neck is supple. There is no elevated jugular venous pressure.no carotid bruit is heard. HEART EXAMINATION: [Heart S1, S2 systolic murmur is heard. CHEST EXAMINATION:[ Lungs are clear to auscultation . ABDOMEN: [ Soft, nontender. Bowel sounds are heard. No organomegaly noted. EXTREMITIES:[ 2+ peripheral pulses with no evidence of peripheral edema and no calf tenderness noted. NEUROLOGIC [patient is awake, alert and oriented X3. - Labs CBC & Chem 7: 09/04/18 05:57 09/04/18 05:57 Labs: Abnormal Lab Results - Last 24 Hours (Table) 09/03/18 09/03/18 09/04/18 Range/Units 16:54 20:52 05:42 Potassium (3.5-5.1) mmol/L BUN (7-17) mg/dL Creatinine (0.52-1.04) mg/dL Glucose (74-99) mg/dL POC Glucose (mg/dL) 152 H 205 H 119 H (75-99) mg/dL 09/04/18 Range/Units 05:57 Potassium 3.4 L (3.5-5.1) mmol/L BUN 40 H (7-17) mg/dL Creatinine 1.17 H (0.52-1.04) mg/dL Glucose 117 H (74-99) mg/dL POC Glucose (mg/dL) (75-99) mg/dL Assessment and Plan Plan: Assessment and plan #1 systolic congestive heart failure acute on chronic #2 abnormality in troponin suggesting acute coronary syndrome. #3known history of coronary artery disease with prior bypass surgery in 1999 #4 hypertension #5 diabetes #6 hyperlipidemia #7 ischemic cardiomyopathy with prior by V AICD implantation Plan Echocardiogram with Doppler study revealed an ejection fraction of 30%. From cardiology's perspective, we'll recommend to continue the patient on her current medications. She may be able to be discharged home once cleared by primary and we will follow her up in the office. DNP note has been reviewed, I agree with a documented findings and plan of care. Patient was seen and examined.
[2018-09-04 12:16] VITALS: RESP 16
[2018-09-04] MEDS ORDERED: Potassium Replacement Protocol 1 EACH MISC MISCELLANE PRN (12:25)
[2018-09-04] MEDS: POTASSIUM CHLORIDE ER 20 MEQ TAB.ER PO SCH ×3 (12:41→16:15)
[2018-09-04 15:48] VITALS: BP 148/71; PULSE 60; TEMP 98
--- NOTE | 2018-09-05 09:19 | DS ---
DISCHARGE SUMMARY DATE OF ADMISSION: 09/01/2018. DATE OF DISCHARGE: 09/04/2018 FINAL DIAGNOSES: 1. Acute non-Q-wave myocardial infarction. 2. Known coronary artery disease, prior history of coronary bypass. 3. Acute congestive heart failure exacerbation from ischemic cardiomyopathy, ejection fraction 30%-35%.. 4. Diabetes mellitus type 2, chronically on oral hypoglycemic. 5. Hyperlipidemia. 6. Hypertensive urgency on presentation. 7. Primary osteoarthritis. 8. Abdominal aortic aneurysm. 9. Chronic gait dysfunction, uses a walker. 10.Hard of hearing. 11.Pacemaker generator in place. 12.Contaminated blood cultures. 13.Moderate to severe mitral regurgitation, nonrheumatic. 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 HOSPITAL COURSE: This patient presented with acute non-Q-wave AL and CHF exacerbation. Doing better at the time of discharge. Care was discussed with family. CONSULTATION: Dr. Rob from Cardiology. PHYSICAL EXAMINATION: Temperature 98, pulse 67, respiration 16, blood pressure 140/71, pulse ox 94% on room air. LUNGS: Fair entry. CARDIOVASCULAR: First and second sounds are normal. LABS: BUN 40, creatinine 1.17. A 2D echocardiogram showed EF of 35%-40%. There is also moderate to severe mitral regurgitation. DISCHARGE MEDICATIONS: 1. Aricept 10 mg q.h.s. 2. Lexapro 20 mg p.o. daily. 3. Cozaar 100 mg p.o. daily. 4. Multivitamin 1 tablet p.o. daily. 5. Lipitor 80 mg q.h.s. 6. Tylenol 1-2 tablets q.8 p.r.n. 7. Senokot 1 tablet p.o. b.i.d. 8. Iron 325 p.o. b.i.d. 9. Aspirin 81 mg a day. 10.Colace 100 mg p.o. daily. 11.NovoLog per protocol. 12.Januvia 50 mg p.o. daily. 13.Ultram 50 mg q.6 p.r.n. 14.Coreg 6.25 mg p.o. b.i.d. 15.Lasix 40 mg p.o. daily. 16.Potassium 20 mEq p.o. daily. FOLLOWUP: Follow up with Dr. Junior on 09/15/2018. Follow up with Dr. Dimitrios Espinosa on 10/01/2018. MMVONL / IJN: [id number] /
== END 2018-09-04 16:41 | disposition home health service (06) | DRG 280 ==
LOC: EC 08:41 → 3SCARD 12:12
PROVIDERS: ADMIT Hospitalist; ATTEND Hospitalist
DX: I21.4 Non-ST elevation (NSTEMI) myocardial infarction (principal); I50.23 Acute on chronic systolic (congestive) heart failure; I25.5 Ischemic cardiomyopathy; E11.9 Type 2 diabetes mellitus without complications; G30.1 Alzheimer's disease with late onset; F02.80 Dementia in other diseases classified elsewhere, unspecified severity, without behavioral disturbance, psychotic disturbance, mood disturbance, and anxiety; I34.0 Nonrheumatic mitral (valve) insufficiency; I11.0 Hypertensive heart disease with heart failure; I16.0 Hypertensive urgency; I25.10 Atherosclerotic heart disease of native coronary artery without angina pectoris; I71.4 Abdominal aortic aneurysm, without rupture; E78.5 Hyperlipidemia, unspecified; F32.9 Major depressive disorder, single episode, unspecified; M19.91 Primary osteoarthritis, unspecified site; H91.93 Unspecified hearing loss, bilateral; N28.9 Disorder of kidney and ureter, unspecified; R26.9 Unspecified abnormalities of gait and mobility; I25.2 Old myocardial infarction; Z79.01 Long term (current) use of anticoagulants; Z79.82 Long term (current) use of aspirin; Z79.4 Long term (current) use of insulin; Z79.899 Other long term (current) drug therapy; Z95.1 Presence of aortocoronary bypass graft; Z86.73 Personal history of transient ischemic attack (TIA), and cerebral infarction without residual deficits; Z96.653 Presence of artificial knee joint, bilateral; Z95.810 Presence of automatic (implantable) cardiac defibrillator; Z87.81 Personal history of (healed) traumatic fracture; Z87.440 Personal history of urinary (tract) infections; Z88.5 Allergy status to narcotic agent; Z88.0 Allergy status to penicillin; Z82.49 Family history of ischemic heart disease and other diseases of the circulatory system
CPT/HCPCS: 36415; 71046; 80048; 80053; 82550; 82553; 83735; 83880; 84484; 85025; 85610; 85730; 87040; 87077; 87186; 93005; 93306; 96374; 99291